=== PATIENT | male | born 1940 | race Caucasian/White ===

== ENCOUNTER 2019-12-12 23:02 | Inpatient (IN) | payer MEDICARE, SELFPAY ==
[2019-12-14 04:05] VITALS: BMI 18.6
--- NOTE | 2019-12-14 04:20 | US_ITS ---
EXAMINATION: ULTRASOUND-GUIDED THORACENTESIS CLINICAL INFORMATION: Recurrent left pleural effusion COMPARISON: Previous exam May 2019 TECHNIQUE: Procedure and risks and benefits including bleeding, infection and pneumothorax were discussed with the patient and informed consent was obtained. The left posterior lateral chest was prepped and draped in the usual sterile fashion. The skin and soft tissues were anesthetized with 1% lidocaine plain. Using ultrasound guidance and a 4 Palestinian rapid centesis catheter, access to the left pleural effusion was obtained. 350 mL of clear yellow fluid was removed. Diagnostic specimen was sent. FINDINGS: There is a moderate left pleural effusion. IMPRESSION: Ultrasound-guided left thoracentesis.
[2019-12-15] VITALS (17 sets, daily range): BP systolic 107–139; BP diastolic 56–74; PULSE 60–102; RESP 12–20; TEMP 36.2–37.2; O2SAT 91–99
[2019-12-15] MEDS: 0.9 % Sodium Chloride Flush 3 ML SYRINGE 2 ML IVFLUSH ×2 (04:51→07:57)
[2019-12-15] MEDS: Piperacillin Sodium/Tazobactam 3.375 GM in 0.9 % Sodium Chloride 50 ML IV ×3 (04:51→22:06)
[2019-12-15] MEDS: oxyCODONE HCl Immed Release 5 MG TABLET PO (04:52)
[2019-12-15 06:48] LABS: Basophils Percent Auto 0.1 % (0-2); Eosinophils Percent Auto 0.1 % (0-4); Hematocrit 33.1 % (42-52); Hemoglobin 10.3 g/dl (14.0-18.0); Imm Gran Abs Auto 0.07 X10*3/uL (0.00-0.03); Imm Gran Pct Auto 0.5 % (0.0-0.4); Lymphocytes Absolute Auto 0.5 X10*3/uL (1.2-4.9); Lymphocytes Percent Auto 3.4 % (20-40); MANUAL DIFF FLAG SCAN; Mean Corpuscular HGB Conc 31.1 g/dl (31.0-36.0); Mean Corpuscular Hemoglobin 25.9 pg (27.0-33.0); Mean Corpuscular Volume 83.2 fL (80-98); Mean Platelet Volume 10.9 fL (9.4-12.4); Monocytes Absolute Auto 0.8 X10*3/uL (0.1-1.2); Monocytes Percent Auto 5.4 % (2-11); Neutrophils Absolute Auto 12.9 X10*3/uL (2.0-8.3); Neutrophils Percent Auto 90.5 % (45-73); Platelet Count 297 X10*3/uL (160-400); Red Blood Count 3.98 X10*6/uL (4.60-5.80); Red Cell Distribution Width 14.9 % (11.0-16.0); SCAN SMEAR FLAG 1; White Blood Count 14.3 X10*3/uL (4.8-10.8)
[2019-12-15 07:04] LABS: Anion Gap 10 (12-20); Blood Urea Nitrogen 13 mg/dL (9-16); Calcium 8.1 mg/dL (8.4-10.2); Carbon Dioxide 32 mmol/L (22-29); Chloride 99 mmol/L (96-108); Estimated Glomerular Filt Rate > 60; Glucose Fasting 99 mg/dL (60-99); Potassium 3.7 mmol/l (3.3-5.1); Sodium 137 mmol/L (135-145)
[2019-12-15] MEDS: vancomycin HCL 1,000 MG in 0.9 % Sodium Chloride 250 ML 180 MG IV (07:58)
--- NOTE | 2019-12-15 08:30 | PC.NURSE ---
P: PATIENT SEEMS TO BE MAKING ABOUT 18.75 CCS URINE /HOUR I: ASSESS PATIENT, NOTIFY DR. COREY I: BLADDER SCAN E: PATIENT AROUSABLE AND ORIENTED, HAS PAIN IN HIS LOWER BACK, HIPS, LEFT REAR FLANK AROUND THORACENTESIS SITE, THE DRESSING FOR WHICH IS INTACT. NPO FOR VATS PLANNED TODAY. URINE OUTPUT SOMEWHAT LOW. BLADDER SCCANNED AT 1:30 AM FOR [address] COREY, NO NEW ORDERS AT THIS TIME.
[2019-12-15] MEDS: Gabapentin 100 MG CAPSULE PO ×2 (08:56→22:06)
--- NOTE | 2019-12-15 09:37 | PM.OP ---
Brief Operative Note Date of procedure: 12/15/19 Implants:
[2019-12-15 10:27] LABS: SLIDE REVIEW VERIFIED
--- NOTE | 2019-12-15 11:08 | HO.PM.IMPN ---
Subjective Subjective Date of Service: 12/15/19 Interval History: no new complaints Cardiovascular Cardiovascular: Reports no additional cardiovascular complaints Respiratory Respiratory: Reports no additional respiratory complaints Physical Exam Vital Signs and I&O and Narrative: Vital Signs and I&O: Vital Signs Temp 97.9 F 12/15/19 07:52 Pulse 90 12/15/19 07:52 Resp 18 12/15/19 07:52 BP 107/64 12/15/19 07:52 Pulse Ox 94 12/15/19 08:00 Intake & Output 12/14/19 12/15/19 12/15/19 18:59 06:59 18:59 Intake Total 80 / 80 320 / 320 Output Total 510 / 510 Balance -430 / -430 320 / 320 Urine Output (Aver age ml/kg/hr) 0.70 0.70 Intake: Intake, Oral [place] unt Intake, IV Amoun t 50 / 50 320 / 320 Piperacillin S odium/Tazobactam 50 / 50 50 / 50 3.375 gm In 0. 9 % Sodium Chloride 50 ml @ 100 mls/hr IV Q6H [facility] Rx#:[id number] vancomycin HCL 1,000 mg In 0.9 270 / 270 % Sodium Chlor regine 250 ml @ 180 mls/hr IV Q12H [facility] Rx#: [id number] Output: Output, Urine Am ount 510 / 510 Other: NPO Yes Urine Urinal Urine Color Straw Body Mass Index 18.6 Const: General: no acute distress and alert Orientation/consciousness: patient oriented x3 Resp: Auscultation: clear to auscultation bilaterally Cardio: Heart sounds: S1 normal heart sound present and S2 normal heart sound present GI: Palpation (GI): nontender Neuro: General: patient oriented x3 Psych: Affect: normal affect Objective Data Current Medications Generic Name Dose Route Start Last Admin Trade Name Freq PRN Reason Stop Dose Admin Acetaminophen 650 mg 12/15/19 00:00 Acetaminophen 325 Mg Tablet PO Q6H PRN fever/pain,mild (scale 1-3) Gabapentin 100 mg 12/15/19 09:00 12/15/19 08:56 Gabapentin 100 Mg Capsule PO 100 mg TID GODWIN Administration Piperacillin Sod/Tazobactam 50 mls @ 100 mls/hr 12/15/19 03:00 12/15/19 10:42 Sod 3.375 gm/ Sodium Chloride IV Infused Q6H GODWIN Infusion Ondansetron HCl 4 mg 12/15/19 00:00 Ondansetron Hcl 4 Mg/2 Ml Vial IVPUSH Q8H PRN Nausea and Vomiting Oxycodone HCl 2.5 mg 12/15/19 00:01 Oxycodone Hcl Immed Release 5 Mg Tablet PO Q4H PRN Pain, Moderate (Pain Scale 4-6 Oxycodone HCl 5 mg 12/15/19 00:00 12/15/19 04:52 Oxycodone Hcl Immed Release 5 Mg Tablet PO 5 mg Q4H PRN Administration Pain, Severe (Pain Scale 7-10) Sodium Chloride 2 ml 12/15/19 00:00 12/15/19 07:57 0.9 % Sodium Chloride Flush 3 Ml Syringe IVFLUSH 2 ml QSHIFT GODWIN Administration Labs CBC & Chem 7: 12/15/19 06:00 12/15/19 06:00 Labs: Laboratory Results - last 24 hr 12/12/19 12/12/19 12/12/19 20:06 20:06 20:06 MCV MCH MCHC RDW RDW Coeff of Eduardo Plt Count MPV Immature Gran % (Auto) Neut % (Auto) Lymph % (Auto) [place] % (Auto) Eos % (Auto) Baso % (Auto) Neut # (Auto) Lymph # (Auto) [place] # (Auto) Eos # (Auto) Baso # (Auto) Abs Immat Gran (auto) Absolute Lymphs (auto) Absolute Monos (auto) Absolute Eos (auto) Absolute Basos (auto) Absolute Nucleated RBC Nucleated RBC % (auto) Absolute Neutrophils Smear Tech's Comments PT INR APTT Hold Blue Top Bicarbonate 31 H Anion Gap 13 Estimated Creat Clear 56.9 Estim Creat Clear Calc Estimated GFR Est GFR (Non-Af Amer) > 60 Random Glucose 139 H Fasting Glucose Lactic Acid 1.3 Calcium Troponin I High Sens 12.6 Urine Color Urine Appearance Urine pH Ur Specific [place] Urine Protein Urine Glucose (UA) Urine Ketones Urine Blood Urine Nitrite Urine WBC (Auto) Urine RBC Urine WBC Ur Epithelial Cells Urine Crystals Urine Bacteria Urine Mucus Fluid Type Fluid WBC Fluid RBC Fluid Seg Neutrophils Fluid Lymphocytes Fluid Monocytes Fluid Eosinophils Fluid Basophils Fluid Other Cells Vancomycin Trough Coronavirus (PCR) Blood Type ABO Group Antibody Screen 12/12/19 12/12/19 12/12/19 20:06 20:06 23:11 MCV 82.6 MCH 25.7 L MCHC 31.2 RDW RDW Coeff of [place] 15.3 Plt Count 314 D MPV 9.4 Immature Gran % (Auto) 0.4 Neut % (Auto) 89.5 H Lymph % (Auto) 3.8 L [place] % (Auto) 6.1 Eos % (Auto) 0.0 Baso % (Auto) 0.2 Neut # (Auto) Lymph # (Auto) [place] # (Auto) Eos # (Auto) Baso # (Auto) Abs Immat Gran (auto) 0.08 H Absolute Lymphs (auto) 0.7 L Absolute Monos (auto) 1.1 Absolute Eos (auto) 0.0 Absolute Basos (auto) 0.0 Absolute Nucleated RBC 0.000 Nucleated RBC % (auto) 0.0 Absolute Neutrophils 16.5 H Smear Tech's Comments PT INR APTT Hold Blue Top SEE NOTE Bicarbonate Anion Gap Estimated Creat Clear Estim Creat Clear Calc Estimated GFR Est GFR (Non-Af Amer) Random Glucose Fasting Glucose Lactic Acid Calcium Troponin I High Sens 14.9 Urine Color Urine Appearance Urine pH Ur Specific [place] Urine Protein Urine Glucose (UA) Urine Ketones Urine Blood Urine Nitrite Urine WBC (Auto) Urine RBC Urine WBC Ur Epithelial Cells Urine Crystals Urine Bacteria Urine Mucus Fluid Type Fluid WBC Fluid RBC Fluid Seg Neutrophils Fluid Lymphocytes Fluid Monocytes Fluid Eosinophils Fluid Basophils Fluid Other Cells Vancomycin Trough Coronavirus (PCR) Blood Type ABO Group Antibody Screen 12/12/19 12/13/19 12/13/19 23:11 05:49 05:49 MCV 83.6 MCH 25.5 L MCHC 30.5 L RDW RDW Coeff of Eduardo 15.3 Plt Count 297 MPV 10.3 Immature Gran % (Auto) 0.6 H Neut % (Auto) 89.2 H Lymph % (Auto) 3.6 L [place] % (Auto) 6.4 Eos % (Auto) 0.1 Baso % (Auto) 0.1 Neut # (Auto) Lymph # (Auto) [place] # (Auto) Eos # (Auto) Baso # (Auto) Abs Immat Gran (auto) 0.12 H Absolute Lymphs (auto) 0.7 L Absolute Monos (auto) 1.3 H Absolute Eos (auto) 0.0 Absolute Basos (auto) 0.0 Absolute Nucleated RBC 0.000 Nucleated RBC % (auto) 0.0 Absolute Neutrophils 17.7 H Smear Tech's Comments PT INR APTT Hold Blue Top Bicarbonate 30 H Anion Gap 14 Estimated Creat Clear 71.1 Estim Creat Clear Calc Estimated GFR Est GFR (Non-Af Amer) > 60 Random Glucose Fasting Glucose 108 H Lactic Acid Calcium 8.6 D Troponin I High Sens Urine Color YELLOW Urine Appearance HAZY Urine pH 6.5 Ur Specific [place] 1.020 Urine Protein NEG Urine Glucose (UA) NEG Urine Ketones 5 Urine Blood 1+ H Urine Nitrite NEG Urine WBC (Auto) NEG Urine RBC 5-9 H Urine WBC 1-4 Ur Epithelial Cells 1+ Urine Crystals CA OXALATE 2+ Urine Bacteria 1+ Urine Mucus 1+ Fluid Type Fluid WBC Fluid RBC Fluid Seg Neutrophils Fluid Lymphocytes Fluid Monocytes Fluid Eosinophils Fluid Basophils Fluid Other Cells Vancomycin Trough Coronavirus (PCR) Blood Type ABO Group Antibody Screen 12/14/19 12/14/19 12/14/19 05:29 05:29 05:29 MCV 83.6 MCH 25.6 L MCHC 30.6 L RDW RDW Coeff of Eduardo 15.3 Plt Count 271 MPV 9.9 Immature Gran % (Auto) 1.1 H Neut % (Auto) 88.8 H Lymph % (Auto) 3.3 L [place] % (Auto) 6.5 Eos % (Auto) 0.1 Baso % (Auto) 0.2 Neut # (Auto) Lymph # (Auto) [place] # (Auto) Eos # (Auto) Baso # (Auto) Abs Immat Gran (auto) 0.19 H Absolute Lymphs (auto) 0.6 L Absolute Monos (auto) 1.2 Absolute Eos (auto) 0.0 Absolute Basos (auto) 0.0 Absolute Nucleated RBC 0.000 Nucleated RBC % (auto) 0.0 Absolute Neutrophils 15.9 H Smear Tech's Comments VERIFIED PT INR APTT Hold Blue Top Bicarbonate 31 H Anion Gap 13 Estimated Creat Clear 72.1 Estim Creat Clear Calc Estimated GFR Est GFR (Non-Af Amer) > 60 Random Glucose 102 Fasting Glucose Lactic Acid Calcium 8.5 Troponin I High Sens Urine Color Urine Appearance Urine pH Ur Specific [place] Urine Protein Urine Glucose (UA) Urine Ketones Urine Blood Urine Nitrite Urine WBC (Auto) Urine RBC Urine WBC Ur Epithelial Cells Urine Crystals Urine Bacteria Urine Mucus Fluid Type Fluid WBC Fluid RBC Fluid Seg Neutrophils Fluid Lymphocytes Fluid Monocytes Fluid Eosinophils Fluid Basophils Fluid Other Cells Vancomycin Trough 8.2 L Coronavirus (PCR) Blood Type ABO Group Antibody Screen 12/14/19 12/14/19 12/14/19 08:41 09:15 09:45 MCV MCH MCHC RDW RDW Coeff of Eduardo Plt Count MPV Immature Gran % (Auto) Neut % (Auto) Lymph % (Auto) [place] % (Auto) Eos % (Auto) Baso % (Auto) Neut # (Auto) Lymph # (Auto) [place] # (Auto) Eos # (Auto) Baso # (Auto) Abs Immat Gran (auto) Absolute Lymphs (auto) Absolute Monos (auto) Absolute Eos (auto) Absolute Basos (auto) Absolute Nucleated RBC Nucleated RBC % (auto) Absolute Neutrophils Smear Tech's Comments PT 17.2 H D INR 1.4 H APTT 33.4 Hold Blue Top Bicarbonate Anion Gap Estimated Creat Clear Estim Creat Clear Calc Estimated GFR Est GFR (Non-Af Amer) Random Glucose Fasting Glucose Lactic Acid Calcium Troponin I High Sens Urine Color Urine Appearance Urine pH Ur Specific [place] Urine Protein Urine Glucose (UA) Urine Ketones Urine Blood Urine Nitrite Urine WBC (Auto) Urine RBC Urine WBC Ur Epithelial Cells Urine Crystals Urine Bacteria Urine Mucus Fluid Type Fluid WBC Fluid RBC Fluid Seg Neutrophils Fluid Lymphocytes Fluid Monocytes Fluid Eosinophils Fluid Basophils Fluid Other Cells Vancomycin Trough Coronavirus (PCR) NEGATIVE Blood Type ABO Group T&S COMPLETED Antibody Screen 12/14/19 12/14/19 12/15/19 09:45 11:04 05:36 MCV 83.2 MCH 25.9 L MCHC 31.1 RDW 14.9 RDW Coeff of Eduardo Plt Count 297 MPV 10.9 Immature Gran % (Auto) 0.5 H Neut % (Auto) 90.5 H Lymph % (Auto) 3.4 L [place] % (Auto) 5.4 Eos % (Auto) 0.1 Baso % (Auto) 0.1 Neut # (Auto) 12.9 H Lymph # (Auto) 0.5 L [place] # (Auto) 0.8 Eos # (Auto) 0.0 Baso # (Auto) 0.0 Abs Immat Gran (auto) 0.07 H Absolute Lymphs (auto) Absolute Monos (auto) Absolute Eos (auto) Absolute Basos (auto) Absolute Nucleated RBC 0.000 Nucleated RBC % (auto) 0.0 Absolute Neutrophils Smear Tech's Comments VERIFIED PT INR APTT Hold Blue Top Bicarbonate Anion Gap Estimated Creat Clear Estim Creat Clear Calc Estimated GFR Est GFR (Non-Af Amer) Random Glucose Fasting Glucose Lactic Acid Calcium Troponin I High Sens Urine Color Urine Appearance Urine pH Ur Specific [place] Urine Protein Urine Glucose (UA) Urine Ketones Urine Blood Urine Nitrite Urine WBC (Auto) Urine RBC Urine WBC Ur Epithelial Cells Urine Crystals Urine Bacteria Urine Mucus Fluid Type PLEURAL Fluid WBC 0.004 Fluid RBC < 0.002 Fluid Seg Neutrophils 100 Fluid Lymphocytes 0 Fluid Monocytes 0 Fluid Eosinophils 0 Fluid Basophils 0 Fluid Other Cells 0 Vancomycin Trough Coronavirus (PCR) Blood Type A Positive ABO Group Antibody Screen NEGATIVE 12/15/19 12/15/19 12/15/19 05:36 06:00 06:00 MCV Not Rcvd MCH Not Rcvd MCHC Not Rcvd RDW RDW Coeff of Eduardo Not Rcvd Plt Count Not Rcvd MPV Not Rcvd Immature Gran % (Auto) Neut % (Auto) Lymph % (Auto) [place] % (Auto) Eos % (Auto) Baso % (Auto) Neut # (Auto) Lymph # (Auto) [place] # (Auto) Eos # (Auto) Baso # (Auto) Abs Immat Gran (auto) Absolute Lymphs (auto) Absolute Monos (auto) Absolute Eos (auto) Absolute Basos (auto) Absolute Nucleated RBC Not Rcvd Nucleated RBC % (auto) Not Rcvd Absolute Neutrophils Smear Tech's Comments PT INR APTT Hold Blue Top Bicarbonate Not Rcvd Anion Gap 10 L Not Rcvd Estimated Creat Clear Not Rcvd Estim Creat Clear Calc 79.0 Estimated GFR > 60 Est GFR (Non-Af Amer) Not Rcvd Random Glucose Fasting Glucose 99 Not Rcvd Lactic Acid Calcium 8.1 L Not Rcvd Troponin I High Sens Urine Color Urine Appearance Urine pH Ur Specific [place] Urine Protein Urine Glucose (UA) Urine Ketones Urine Blood Urine Nitrite Urine WBC (Auto) Urine RBC Urine WBC Ur Epithelial Cells Urine Crystals Urine Bacteria Urine Mucus Fluid Type Fluid WBC Fluid RBC Fluid Seg Neutrophils Fluid Lymphocytes Fluid Monocytes Fluid Eosinophils Fluid Basophils Fluid Other Cells Vancomycin Trough Coronavirus (PCR) Blood Type ABO Group Antibody Screen
[2019-12-15 11:31] LABS: Vancomycin Random 52.2 mcg/mL (15-20)
--- NOTE | 2019-12-15 13:06 | HO.ANESPROP2 ---
HPI - Anesthesia Eval Consult details Narrative: 79 M w/ empyema p/f VATS decortication PMFSH Past Medical History Medical History Arthritis Back pain Hypercholesteremia Renal cyst Social History Social History Smoking Status: Former smoker Meds Allergies Allergy/AdvReac Type Severity Reaction Status Date / Time No Known Allergies Allergy Verified 12/14/19 18:27 [No Known Allergies*] Home Medications Medication Instructions Recorded Confirmed Type gabapentin 300 mg PO TID 12/14/19 12/14/19 History pregabalin [Lyrica] 50 mg PO BID 12/14/19 12/14/19 History tramadol 50 mg PO Q6H PRN 12/14/19 12/14/19 History Exam Exam Date and Time: December 15, 2019 1306 Height,Weight and Vital Signs: Height 5 ft 11 in Weight 60.781 kg Last Vital Signs Temp 98.9 F 12/15/19 11:55 Pulse 87 12/15/19 11:55 Resp 18 12/15/19 11:55 BP 119/71 12/15/19 11:55 Pulse Ox 93 12/15/19 12:00 Pertinent Lab Results Pertinent Lab Results: Laboratory Tests 12/12/19 12/12/19 12/12/19 20:06 20:06 20:06 WBC RBC Hgb Hct MCV MCH MCHC RDW RDW Coeff of Eduardo Plt Count MPV Immature Gran % (Auto) Neut % (Auto) Lymph % (Auto) Angelina % (Auto) Eos % (Auto) Baso % (Auto) Neut # (Auto) Lymph # (Auto) Angelina # (Auto) Eos # (Auto) Baso # (Auto) Abs Immat Gran (auto) Absolute Lymphs (auto) Absolute Monos (auto) Absolute Eos (auto) Absolute Basos (auto) Absolute Nucleated RBC Nucleated RBC % (auto) Absolute Neutrophils Smear Tech's Comments PT INR APTT Hold Blue Top Sodium 134 L Potassium 4.4 Chloride 94 L Carbon Dioxide Bicarbonate 31 H Anion Gap 13 BUN 18 H Creatinine 0.85 Estimated Creat Clear 56.9 Estim Creat Clear Calc Estimated GFR Est GFR (Non-Af Amer) > 60 Random Glucose 139 H Fasting Glucose Lactic Acid 1.3 Calcium Troponin I High Sens 12.6 Urine Color Urine Appearance Urine pH Ur Specific [place] Urine Protein Urine Glucose (UA) Urine Ketones Urine Blood Urine Nitrite Urine WBC (Auto) Urine RBC Urine WBC Ur Epithelial Cells Urine Crystals Urine Bacteria Urine Mucus Fluid Type Fluid WBC Fluid RBC Fluid Seg Neutrophils Fluid Lymphocytes Fluid Monocytes Fluid Eosinophils Fluid Basophils Fluid Other Cells Vancomycin Trough Random Vancomycin Coronavirus (PCR) Blood Type ABO Group Antibody Screen 12/12/19 12/12/19 12/12/19 20:06 20:06 23:11 WBC 18.5 H RBC 4.70 Hgb 12.1 L Hct 38.8 L MCV 82.6 MCH 25.7 L MCHC 31.2 RDW RDW Coeff of Eduardo 15.3 Plt Count 314 D MPV 9.4 Immature Gran % (Auto) 0.4 Neut % (Auto) 89.5 H Lymph % (Auto) 3.8 L Angelina % (Auto) 6.1 Eos % (Auto) 0.0 Baso % (Auto) 0.2 Neut # (Auto) Lymph # (Auto) Angelina # (Auto) Eos # (Auto) Baso # (Auto) Abs Immat Gran (auto) 0.08 H Absolute Lymphs (auto) 0.7 L Absolute Monos (auto) 1.1 Absolute Eos (auto) 0.0 Absolute Basos (auto) 0.0 Absolute Nucleated RBC 0.000 Nucleated RBC % (auto) 0.0 Absolute Neutrophils 16.5 H Smear Tech's Comments PT INR APTT Hold Blue Top SEE NOTE Sodium Potassium Chloride Carbon Dioxide Bicarbonate Anion Gap BUN Creatinine Estimated Creat Clear Estim Creat Clear Calc Estimated GFR Est GFR (Non-Af Amer) Random Glucose Fasting Glucose Lactic Acid Calcium Troponin I High Sens 14.9 Urine Color Urine Appearance Urine pH Ur Specific [place] Urine Protein Urine Glucose (UA) Urine Ketones Urine Blood Urine Nitrite Urine WBC (Auto) Urine RBC Urine WBC Ur Epithelial Cells Urine Crystals Urine Bacteria Urine Mucus Fluid Type Fluid WBC Fluid RBC Fluid Seg Neutrophils Fluid Lymphocytes Fluid Monocytes Fluid Eosinophils Fluid Basophils Fluid Other Cells Vancomycin Trough Random Vancomycin Coronavirus (PCR) Blood Type ABO Group Antibody Screen 12/12/19 12/13/19 12/13/19 23:11 05:49 05:49 WBC 19.9 H RBC 4.58 L Hgb 11.7 L Hct 38.3 L MCV 83.6 MCH 25.5 L MCHC 30.5 L RDW RDW Coeff of Eduardo 15.3 Plt Count 297 MPV 10.3 Immature Gran % (Auto) 0.6 H Neut % (Auto) 89.2 H Lymph % (Auto) 3.6 L Angelina % (Auto) 6.4 Eos % (Auto) 0.1 Baso % (Auto) 0.1 Neut # (Auto) Lymph # (Auto) Angelina # (Auto) Eos # (Auto) Baso # (Auto) Abs Immat Gran (auto) 0.12 H Absolute Lymphs (auto) 0.7 L Absolute Monos (auto) 1.3 H Absolute Eos (auto) 0.0 Absolute Basos (auto) 0.0 Absolute Nucleated RBC 0.000 Nucleated RBC % (auto) 0.0 Absolute Neutrophils 17.7 H Smear Tech's Comments PT INR APTT Hold Blue Top Sodium 136 Potassium 4.7 Chloride 97 Carbon Dioxide Bicarbonate 30 H Anion Gap 14 BUN 12 Creatinine 0.70 Estimated Creat Clear 71.1 Estim Creat Clear Calc Estimated GFR Est GFR (Non-Af Amer) > 60 Random Glucose Fasting Glucose 108 H Lactic Acid Calcium 8.6 D Troponin I High Sens Urine Color YELLOW Urine Appearance HAZY Urine pH 6.5 Ur Specific [place] 1.020 Urine Protein NEG Urine Glucose (UA) NEG Urine Ketones 5 Urine Blood 1+ H Urine Nitrite NEG Urine WBC (Auto) NEG Urine RBC 5-9 H Urine WBC 1-4 Ur Epithelial Cells 1+ Urine Crystals CA OXALATE 2+ Urine Bacteria 1+ Urine Mucus 1+ Fluid Type Fluid WBC Fluid RBC Fluid Seg Neutrophils Fluid Lymphocytes Fluid Monocytes Fluid Eosinophils Fluid Basophils Fluid Other Cells Vancomycin Trough Random Vancomycin Coronavirus (PCR) Blood Type ABO Group Antibody Screen 12/14/19 12/14/19 12/14/19 05:29 05:29 05:29 WBC 18.0 H RBC 4.14 L Hgb 10.6 L Hct 34.6 L MCV 83.6 MCH 25.6 L MCHC 30.6 L RDW RDW Coeff of Eduardo 15.3 Plt Count 271 MPV 9.9 Immature Gran % (Auto) 1.1 H Neut % (Auto) 88.8 H Lymph % (Auto) 3.3 L Angelina % (Auto) 6.5 Eos % (Auto) 0.1 Baso % (Auto) 0.2 Neut # (Auto) Lymph # (Auto) Angelina # (Auto) Eos # (Auto) Baso # (Auto) Abs Immat Gran (auto) 0.19 H Absolute Lymphs (auto) 0.6 L Absolute Monos (auto) 1.2 Absolute Eos (auto) 0.0 Absolute Basos (auto) 0.0 Absolute Nucleated RBC 0.000 Nucleated RBC % (auto) 0.0 Absolute Neutrophils 15.9 H Smear Tech's Comments VERIFIED PT INR APTT Hold Blue Top Sodium 138 Potassium 4.0 Chloride 98 Carbon Dioxide Bicarbonate 31 H Anion Gap 13 BUN 12 Creatinine 0.69 Estimated Creat Clear 72.1 Estim Creat Clear Calc Estimated GFR Est GFR (Non-Af Amer) > 60 Random Glucose 102 Fasting Glucose Lactic Acid Calcium 8.5 Troponin I High Sens Urine Color Urine Appearance Urine pH Ur Specific [place] Urine Protein Urine Glucose (UA) Urine Ketones Urine Blood Urine Nitrite Urine WBC (Auto) Urine RBC Urine WBC Ur Epithelial Cells Urine Crystals Urine Bacteria Urine Mucus Fluid Type Fluid WBC Fluid RBC Fluid Seg Neutrophils Fluid Lymphocytes Fluid Monocytes Fluid Eosinophils Fluid Basophils Fluid Other Cells Vancomycin Trough 8.2 L Random Vancomycin Coronavirus (PCR) Blood Type ABO Group Antibody Screen 12/14/19 12/14/19 12/14/19 08:41 09:15 09:45 WBC RBC Hgb Hct MCV MCH MCHC RDW RDW Coeff of Eduardo Plt Count MPV Immature Gran % (Auto) Neut % (Auto) Lymph % (Auto) Angelina % (Auto) Eos % (Auto) Baso % (Auto) Neut # (Auto) Lymph # (Auto) Angelina # (Auto) Eos # (Auto) Baso # (Auto) Abs Immat Gran (auto) Absolute Lymphs (auto) Absolute Monos (auto) Absolute Eos (auto) Absolute Basos (auto) Absolute Nucleated RBC Nucleated RBC % (auto) Absolute Neutrophils Smear Tech's Comments PT 17.2 H D INR 1.4 H APTT 33.4 Hold Blue Top Sodium Potassium Chloride Carbon Dioxide Bicarbonate Anion Gap BUN Creatinine Estimated Creat Clear Estim Creat Clear Calc Estimated GFR Est GFR (Non-Af Amer) Random Glucose Fasting Glucose Lactic Acid Calcium Troponin I High Sens Urine Color Urine Appearance Urine pH Ur Specific [place] Urine Protein Urine Glucose (UA) Urine Ketones Urine Blood Urine Nitrite Urine WBC (Auto) Urine RBC Urine WBC Ur Epithelial Cells Urine Crystals Urine Bacteria Urine Mucus Fluid Type Fluid WBC Fluid RBC Fluid Seg Neutrophils Fluid Lymphocytes Fluid Monocytes Fluid Eosinophils Fluid Basophils Fluid Other Cells Vancomycin Trough Random Vancomycin Coronavirus (PCR) NEGATIVE Blood Type ABO Group T&S COMPLETED Antibody Screen 12/14/19 12/14/19 12/15/19 09:45 11:04 05:36 WBC 14.3 H RBC 3.98 L Hgb 10.3 L Hct 33.1 L MCV 83.2 MCH 25.9 L MCHC 31.1 RDW 14.9 RDW Coeff of Eduardo Plt Count 297 MPV 10.9 Immature Gran % (Auto) 0.5 H Neut % (Auto) 90.5 H Lymph % (Auto) 3.4 L Angelina % (Auto) 5.4 Eos % (Auto) 0.1 Baso % (Auto) 0.1 Neut # (Auto) 12.9 H Lymph # (Auto) 0.5 L Angelina # (Auto) 0.8 Eos # (Auto) 0.0 Baso # (Auto) 0.0 Abs Immat Gran (auto) 0.07 H Absolute Lymphs (auto) Absolute Monos (auto) Absolute Eos (auto) Absolute Basos (auto) Absolute Nucleated RBC 0.000 Nucleated RBC % (auto) 0.0 Absolute Neutrophils Smear Tech's Comments VERIFIED PT INR APTT Hold Blue Top Sodium Potassium Chloride Carbon Dioxide Bicarbonate Anion Gap BUN Creatinine Estimated Creat Clear Estim Creat Clear Calc Estimated GFR Est GFR (Non-Af Amer) Random Glucose Fasting Glucose Lactic Acid Calcium Troponin I High Sens Urine Color Urine Appearance Urine pH Ur Specific [place] Urine Protein Urine Glucose (UA) Urine Ketones Urine Blood Urine Nitrite Urine WBC (Auto) Urine RBC Urine WBC Ur Epithelial Cells Urine Crystals Urine Bacteria Urine Mucus Fluid Type PLEURAL Fluid WBC 0.004 Fluid RBC < 0.002 Fluid Seg Neutrophils 100 Fluid Lymphocytes 0 Fluid Monocytes 0 Fluid Eosinophils 0 Fluid Basophils 0 Fluid Other Cells 0 Vancomycin Trough Random Vancomycin Coronavirus (PCR) Blood Type A Positive ABO Group Antibody Screen NEGATIVE 12/15/19 12/15/19 12/15/19 05:36 06:00 06:00 WBC Not Rcvd RBC Not Rcvd Hgb Not Rcvd Hct Not Rcvd MCV Not Rcvd MCH Not Rcvd MCHC Not Rcvd RDW RDW Coeff of Eduardo Not Rcvd Plt Count Not Rcvd MPV Not Rcvd Immature Gran % (Auto) Neut % (Auto) Lymph % (Auto) Angelina % (Auto) Eos % (Auto) Baso % (Auto) Neut # (Auto) Lymph # (Auto) Angelina # (Auto) Eos # (Auto) Baso # (Auto) Abs Immat Gran (auto) Absolute Lymphs (auto) Absolute Monos (auto) Absolute Eos (auto) Absolute Basos (auto) Absolute Nucleated RBC Not Rcvd Nucleated RBC % (auto) Not Rcvd Absolute Neutrophils Smear Tech's Comments PT INR APTT Hold Blue Top Sodium 137 Not Rcvd Potassium 3.7 Not Rcvd Chloride 99 Not Rcvd Carbon Dioxide 32 H Bicarbonate Not Rcvd Anion Gap 10 L Not Rcvd BUN 13 Not Rcvd Creatinine 0.63 Not Rcvd Estimated Creat Clear Not Rcvd Estim Creat Clear Calc 79.0 Estimated GFR > 60 Est GFR (Non-Af Amer) Not Rcvd Random Glucose Fasting Glucose 99 Not Rcvd Lactic Acid Calcium 8.1 L Not Rcvd Troponin I High Sens Urine Color Urine Appearance Urine pH Ur Specific [place] Urine Protein Urine Glucose (UA) Urine Ketones Urine Blood Urine Nitrite Urine WBC (Auto) Urine RBC Urine WBC Ur Epithelial Cells Urine Crystals Urine Bacteria Urine Mucus Fluid Type Fluid WBC Fluid RBC Fluid Seg Neutrophils Fluid Lymphocytes Fluid Monocytes Fluid Eosinophils Fluid Basophils Fluid Other Cells Vancomycin Trough Random Vancomycin Coronavirus (PCR) Blood Type ABO Group Antibody Screen 12/15/19 08:56 WBC RBC Hgb Hct MCV MCH MCHC RDW RDW Coeff of Eduardo Plt Count MPV Immature Gran % (Auto) Neut % (Auto) Lymph % (Auto) Angelina % (Auto) Eos % (Auto) Baso % (Auto) Neut # (Auto) Lymph # (Auto) Angelina # (Auto) Eos # (Auto) Baso # (Auto) Abs Immat Gran (auto) Absolute Lymphs (auto) Absolute Monos (auto) Absolute Eos (auto) Absolute Basos (auto) Absolute Nucleated RBC Nucleated RBC % (auto) Absolute Neutrophils Smear Tech's Comments PT INR APTT Hold Blue Top Sodium Potassium Chloride Carbon Dioxide Bicarbonate Anion Gap BUN Creatinine Estimated Creat Clear Estim Creat Clear Calc Estimated GFR Est GFR (Non-Af Amer) Random Glucose Fasting Glucose Lactic Acid Calcium Troponin I High Sens Urine Color Urine Appearance Urine pH Ur Specific [place] Urine Protein Urine Glucose (UA) Urine Ketones Urine Blood Urine Nitrite Urine WBC (Auto) Urine RBC Urine WBC Ur Epithelial Cells Urine Crystals Urine Bacteria Urine Mucus Fluid Type Fluid WBC Fluid RBC Fluid Seg Neutrophils Fluid Lymphocytes Fluid Monocytes Fluid Eosinophils Fluid Basophils Fluid Other Cells Vancomycin Trough Random Vancomycin 52.2 H* Coronavirus (PCR) Blood Type ABO Group Antibody Screen Airway Mallampati Class: I TM Dist: >3cm Neck ROM: Full Loose/Missing/Broken Teeth: No Heart: RRR, PACs Assessment and Plan Assessment Anesthesia Assessment: Anesthesia Plan Discussed, Consent Obtained and Chart Reviewed Final Anesthetic Review NPO: Yes ASA Class: III Final Preanesthetic Review: No Changes in Pt Med Stat, Meds & Allergies Reviewed, Consent Obtained/Reviewed, Med/Surg/Anes Hx Reviewed and DNR Form (If Appl.) (DNR reversed for 24 hours) Patient Risk: High Procedure Risk: Intermediate Anesthetic Plan Anesthetic Plan: GA Disposition: Standard PACU and Inp. Admit - [facility]
[2019-12-15] MEDS: Lactated Ringers 1,000 ML 50 ML IVCONT (13:30)
--- NOTE | 2019-12-15 16:28 | PC.NURSE ---
18 FR COUDE CATHETER PLACED BY DR YIN PRIOR TO START OF PROCEDURE. 28FR STRAIGHT CHEST TUBE PLACED LEFT CHEST BUPIVICAINE 025% 40ML ADMINISTERED WITH THE ADDITION OF METHYLPREDNISOLONE 80MG/ML BY DR YIN. - JUSTIN, RN
--- NOTE | 2019-12-15 17:07 | XR_ITS ---
EXAMINATION: XR CHEST CLINICAL INFORMATION: Status post left VATS and pleurodesis and pleural biopsy COMPARISON: None TECHNIQUE: Frontal view of the chest was obtained. FINDINGS: Heart size within normal limits. A new chest tube overlying the mediastinum on the AP view is seen. A thick pleural rind is seen on the left. No pneumothorax is seen. Some barely perceptible subcutaneous emphysema is noted on the left but appearances are otherwise not significantly different when compared to yesterday's study. The right lung is clear. IMPRESSION: A new chest tube has been placed on the left overlying the mediastinum. Thick pleural rind remains. Tiny amount of subcutaneous emphysema is present.
[2019-12-16] VITALS (9 sets, daily range): BP systolic 110–138; BP diastolic 58–89; PULSE 79–92; RESP 18–20; TEMP 36.4–37; O2SAT 92–98
[2019-12-16] MEDS: Piperacillin Sodium/Tazobactam 3.375 GM in 0.9 % Sodium Chloride 50 ML IV ×4 (02:39→20:06)
--- NOTE | 2019-12-16 04:13 | OP_ITS ---
SURGEON: Alma Arevalo MD PREOPERATIVE DIAGNOSIS: POSTOPERATIVE DIAGNOSIS: PROCEDURE PERFORMED: ESTIMATED BLOOD LOSS: 15 mL. COMPLICATIONS: ANESTHESIA: ASSISTANTS: SPECIMENS: Pleural fluid, pleural biopsies, and chest wall mass. PREOPERATIVE DIAGNOSES: Left empyema, left pleural mass, left chest wall mass. POSTOPERATIVE DIAGNOSES: Left empyema, left pleural mass, left chest wall mass. PROCEDURES PERFORMED: Left VATS total decortication, pleural biopsy, excision of chest wall mass, intercostal paravertebral subpleural nerve blocks, bronchoscopy. OPERATION IN DETAIL: On the day of the operation, the patient went to the operating room, placed supine on the operating table. Anesthesia monitoring devices were placed. The patient was intubated with a double-lumen endotracheal tube. A bronchoscopy was done once the tube was in position visualizing the airways down to the subsegmental level bilaterally. There were no endobronchial lesions and no secretions. Time-out was performed confirming the correct patient, site, and procedure. The patient was then turned on his right side with the left chest up, and the left chest was widely prepped and draped in standard sterile fashion. After injection of local anesthetic, a 5 mm incision was made over the seventh intercostal space posterior axillary line and the chest was entered with some difficulty. Suction was placed into the chest, and about 500 mL of clear fluid was removed from the chest and collected in a Lukens trap. A 5 mm port and 5 mm 45-degree scope was then inserted into the chest and the chest was explored. There was significant adhesions throughout the chest what appeared to be pleural nodules and a dense pleural mass anteriorly over the fourth rib corresponding to an area outside the chest that had a palpable mass. These adhesions were taken down bluntly and the remaining fluid was suctioned out, and scope was directed posteriorly and a second incision was made, and the chest was entered under direct vision by the bedside surgical physician assistant. Finally after injection of local anesthetic, a third incision was made anteriorly away from where the mass could be appreciated and the chest was entered after injection of local anesthetic without difficulty. Using these incisions, the lung was explored further. Additional pleural rind was removed and sent for pathology, culture, fungus, AFB. At this point, multiple pleural biopsies were taken with the Asher clamp in the most suspicious area. 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 Once the pleural rind had been dealt with, we used the Pulsavac to irrigate 1 L of vancomycin and saline. We then followed that with 1 L of sterile water again with the Pulsavac device. The camera was then moved to the posteriorly. A 28-American straight chest tube was placed posteriorly and up toward the apex and secured with 0 Vicryl suture and connected to the Atrium container. One was then brought up and did not seem to appreciably move and approached the chest wall likely due to it being trapped by most likely tumor. We then directed our attention to the chest wall mass on the outside. A 3 cm incision was made over the top of it. We dissected directly onto it. It was a white-yellow fleshy mass, and this mass was excised in its entirety and sent to pathology for permanent section. The remaining incisions were closed with deep 0 Vicryl suture, followed by running 3-0 Vicryl suture, and Dermabond glue. The patient tolerated the procedure well, was extubated at the conclusion of the operation, brought to the recovery room in stable condition. TERMITE EXTERMINATOR HELPER: PARTH Cobian MD LJR/JESUS / [id number]
--- NOTE | 2019-12-16 06:00 | XR_ITS ---
EXAMINATION: XR CHEST CLINICAL INFORMATION: Postop day one L VATS pleurodesis. Pleural biopsy. Chest wall mass. COMPARISON: 12/15/2019 TECHNIQUE: Frontal view of the chest was obtained. FINDINGS: Left-sided chest tube remains in place. Persistent opacification along the periphery of the left hemithorax, similar to prior. The right lung is clear. No pneumothorax. The cardiomediastinal silhouette is unchanged. IMPRESSION: No significant change from prior. Persistent peripheral opacity of the left hemithorax. Left-sided chest tube in place.
[2019-12-16 07:05] LABS: Anion Gap 15 (12-20); Blood Urea Nitrogen 19 mg/dL (9-16); Calcium 8.5 mg/dL (8.4-10.2); Carbon Dioxide 31 mmol/L (22-29); Chloride 97 mmol/L (96-108); Creatinine Clr Calc Pharmacy 62.2; Estimated Glomerular Filt Rate > 60; Glucose Fasting 189 mg/dL (60-99); Potassium 4.7 mmol/l (3.3-5.1); Sodium 138 mmol/L (135-145)
[2019-12-16 07:07] LABS: Basophils Percent Auto 0.2 % (0-2); Hematocrit 35.6 % (42-52); Imm Gran Abs Auto 0.05 X10*3/uL (0.00-0.03); Imm Gran Pct Auto 0.4 % (0.0-0.4); Lymphocytes Absolute Auto 0.3 X10*3/uL (1.2-4.9); Lymphocytes Percent Auto 2.5 % (20-40); MANUAL DIFF FLAG SCAN; Mean Corpuscular HGB Conc 30.9 g/dl (31.0-36.0); Mean Corpuscular Hemoglobin 26.4 pg (27.0-33.0); Mean Corpuscular Volume 85.6 fL (80-98); Mean Platelet Volume 10.9 fL (9.4-12.4); Monocytes Absolute Auto 0.4 X10*3/uL (0.1-1.2); Monocytes Percent Auto 2.8 % (2-11); Neutrophils Absolute Auto 11.9 X10*3/uL (2.0-8.3); Neutrophils Percent Auto 94.1 % (45-73); Platelet Count 358 X10*3/uL (160-400); Red Blood Count 4.16 X10*6/uL (4.60-5.80); Red Cell Distribution Width 15.5 % (11.0-16.0); SCAN SMEAR FLAG 1; White Blood Count 12.7 X10*3/uL (4.8-10.8)
[2019-12-16 09:37] LABS: SLIDE REVIEW VERIFIED
[2019-12-16] MEDS: 0.9 % Sodium Chloride Flush 3 ML SYRINGE 2 ML IVFLUSH ×3 (09:53→16:10)
[2019-12-16] MEDS: Gabapentin 100 MG CAPSULE PO ×3 (09:53→20:06)
--- NOTE | 2019-12-16 10:11 | P.PNGS_ITS ---
Subjective Subjective Patient reports: no new complaints and other Interval history: Pt was seen and examined this morning, overnight was uneventful. Pt is requesting that urinary catheter be removed. States that his pain is well controlled on current medications. Physical Exam Vital Signs and I&O and Narrative: Vital Signs and I&O: Vital Signs Temp 97.5 F 12/16/19 07:23 Pulse 83 12/16/19 07:23 Resp 18 12/16/19 07:23 BP 126/72 12/16/19 07:23 Pulse Ox 98 12/16/19 07:23 Intake & Output 12/15/19 12/16/19 12/16/19 18:59 06:59 18:59 Intake Total 320 / 420 100 / 420 Output Total 200 / 730 530 / 730 Balance 120 / -310 -430 / -310 Urine Output (Aver age ml/kg/hr) 0.27 0.73 Intake: Intake, Oral Harvinder unt 0 / 0 0 / 0 Intake, IV Amoun t 320 / 420 100 / 420 Piperacillin S odium/Tazobactam 50 / 150 100 / 150 3.375 gm In 0. 9 % Sodium Chloride 50 ml @ 100 mls/hr IV Q6H GODWIN Rx#:[id number] vancomycin HCL 1,000 mg In 0.9 270 / 270 % Sodium Chlor regine 250 ml @ 180 mls/hr IV Q12H GODWIN Rx#: [id number] Lactated Ringe rs 1,000 ml @ 50 0 / 0 mls/hr IVCONT .Q20H GODWIN Rx#: [id number] Output: Output, Urine Am ount 200 / 200 Output, Urine Am ount (Catheter) 530 / 530 Coude 30 / 30 Urethral 500 / 500 Other: NPO Yes Urine Urinal Urine Color Yellow Yellow Body Mass Index 18.6 Const: General: comfortable, no acute distress, alert and awake Orientation/consciousness: patient oriented x3 HENMT: Head: Yes normal to inspection Face and sinus: Yes normal facial exam Neck: Other: No sign of subcutaneous air or crepitis Neck: Yes trachea midline Chest: Other: Left sided chest tube remain in place, set to -20 LWS, no air leak detected and no fluid output. Surgical incision remain CDI with no erythema or drainage noted. No subcu air or crepitis. Resp: Effort & Inspection: normal respiratory effort and able to speak in complete sentences Auscultation: clear to auscultation bilaterally, no rhonchi and no wheezes Cardio: Jugular venous distension: no JVD Rate: regular rate Rhythm: regular rhythm Heart sounds: S1 normal heart sound present, S2 normal heart sound present, no gallops, no murmurs and no rubs GI: Inspection: Yes normal to inspection Palpation (GI): Soft to palpation and nontender Auscultation: normal bowel sounds : Other: Mackey catheter remains in place Skin: Other: Warm and dry Neuro: General: patient oriented x3 Extrem: Right upper extremity: no edema Left upper extremity: no edema Right lower extremity: no edema Left lower extremity: no edema Progress Note: A&P Assessment and plan (1) Empyema: Status: Acute Assessment and Plan: Pt is a 79 y.o male POD#1 S/P Left VATS total decortication, pleural biopsy, excision of chest wall mass. * Chest tube remained on -20 LWS overnight with no fluid output and no air leak detected. * Chest tube to remain on -20 LWS overnight. * CXR this morning shows persistent peripheral opacity of the left hemithorax. Left-sided chest tube in good position with no pneumothorax. * CXR for tomorrow a.m. * Spoke with nursing and emphasized the need for ambulation minimum 3-4 times daily in hallway with assistance. Okay for ambulation with chest tube on water seal. * Informed RN Mackey to be removed now. * Incentive spirometry. * Continue current pain analgesics. Fall Risk Details Current Medications: Current Medications Generic Name Dose Route Start Last Admin Trade Name Freq PRN Reason Stop Dose Admin Acetaminophen 650 mg 12/15/19 00:00 Acetaminophen 325 Mg Tablet PO Q6H PRN fever/pain,mild (scale 1-3) Gabapentin 100 mg 12/15/19 09:00 12/16/19 09:53 Gabapentin 100 Mg Capsule PO 100 mg TID GODWIN Administration Piperacillin Sod/Tazobactam 50 mls @ 100 mls/hr 12/15/19 03:00 12/16/19 09:53 Sod 3.375 gm/ Sodium Chloride IV 100 mls/hr Q6H GODWIN Administration Ondansetron HCl 4 mg 12/15/19 00:00 Ondansetron Hcl 4 Mg/2 Ml Vial IVPUSH Q8H PRN Nausea and Vomiting Oxycodone HCl 2.5 mg 12/15/19 00:01 Oxycodone Hcl Immed Release 5 Mg Tablet PO Q4H PRN Pain, Moderate (Pain Scale 4-6 Oxycodone HCl 5 mg 12/15/19 00:00 12/15/19 04:52 Oxycodone Hcl Immed Release 5 Mg Tablet PO 5 mg Q4H PRN Administration Pain, Severe (Pain Scale 7-10) Sodium Chloride 2 ml 12/15/19 00:00 12/16/19 09:53 0.9 % Sodium Chloride Flush 3 Ml Syringe IVFLUSH 2 ml QSHIFT GODWIN Administration Time Spent With Patient Time: Total time spent is greater than 50% in coordination of care (as documented) at patient's floor/unit and/or counseling patient: Time with patient: 15 - 24 minutes Review of Systems Constitutional Constitutional: Denies body ache(s), Denies chills, Denies difficulty sleeping, Reports excessive sweating, Denies headache(s) and Reports poor appetite Eyes Eyes: Denies change in vision and Denies diplopia ENT Denies dysphagia and Denies headache(s) Cardiovascular Cardiovascular: Denies chest pain, Denies lightheadedness and Denies dyspnea Respiratory Respiratory: Denies chest congestion, Denies cough, Denies hemoptysis and Denies dyspnea Gastrointestinal Gastrointestinal: Denies abdominal pain, Denies dysphagia, Denies nausea and Denies vomiting Genitourinary Comments: Requesting mackey be removed Musculoskeletal Musculoskeletal: Denies myalgias, Denies muscle weakness and Denies numbness Neurologic Denies headache(s), Denies focal weakness and Denies numbness Endocrine Endocrine: Reports excessive sweating
--- NOTE | 2019-12-16 12:45 | PC.NURSE ---
Rivera catheter removed per MD at 10:30 am. Patient tolerated well. Patient due to void in 6 hours at 16:30.
--- NOTE | 2019-12-16 12:55 | HO.POSTANES ---
Post Anesthesia Evaluation Post Anesthesia Evaluation Vital Signs: Vital Signs Temp Pulse Resp BP Pulse Ox 12/16/19 11:32 97.8 F 92 18 120/58 L 95 12/16/19 08:00 95 12/16/19 07:23 97.5 F 83 18 126/72 98 12/16/19 03:38 98.6 F 92 20 110/66 92 Anesthesia: General Endotracheal-GET Mental Status: Awake Pain Control: Satisfactory Nausea/Vomiting: None Hydration: Adequate Anesthesia-Related Issues: No Anes. Related Issues
--- NOTE | 2019-12-16 13:50 | HO.PM.IMPN ---
Subjective Subjective Date of Service: 12/16/19 Interval History: Some pain on ambulation but otherwise okay Physical Exam Vital Signs and I&O and Narrative: Vital Signs and I&O: Vital Signs Temp 97.8 F 12/16/19 11:32 Pulse 92 12/16/19 11:32 Resp 18 12/16/19 11:32 BP 120/58 L 12/16/19 11:32 Pulse Ox 95 12/16/19 11:32 Intake & Output 12/15/19 12/16/19 12/16/19 18:59 06:59 18:59 Intake Total 320 / 420 100 / 420 50 / 50 Output Total 200 / 730 530 / 730 Balance 120 / -310 -430 / -310 50 / 50 Urine Output (Aver age ml/kg/hr) 0.27 0.73 0.73 Intake: Intake, Oral [place] unt 0 / 0 0 / 0 Intake, IV Amoun t 320 / 420 100 / 420 50 / 50 Piperacillin S odium/Tazobactam 50 / 150 100 / 150 50 / 50 3.375 gm In 0. 9 % Sodium Chloride 50 ml @ 100 mls/hr IV Q6H [facility] Rx#:[id number] vancomycin HCL 1,000 mg In 0.9 270 / 270 % Sodium Chlor regine 250 ml @ 180 mls/hr IV Q12H [facility] Rx#: [id number] Lactated Ringe rs 1,000 ml @ 50 0 / 0 mls/hr IVCONT .Q20H [facility] Rx#: [id number] Output: Output, Urine Am ount 200 / 200 Output, Urine Am ount (Catheter) 530 / 530 Coude 30 / 30 Urethral 500 / 500 Other: NPO Yes Urine Urinal Urine Color Yellow Yellow Body Mass Index 18.6 Const: General: comfortable, no acute distress, alert and awake Orientation/consciousness: patient oriented x3 Limitations: No language barrier HENMT: Head: Yes normal to inspection Face and sinus: Yes normal facial exam Neck: Other: No sign of subcutaneous air or crepitis Neck: Yes trachea midline Chest: Other: Left sided chest tube remain in place, set to -20 LWS, no air leak detected and no fluid output. Surgical incision remain CDI with no erythema or drainage noted. No subcu air or crepitis. Resp: Effort & Inspection: normal respiratory effort and able to speak in complete sentences Auscultation: clear to auscultation bilaterally, no rhonchi and no wheezes Cardio: Jugular venous distension: no JVD Rate: regular rate Rhythm: regular rhythm Heart sounds: S1 normal heart sound present, S2 normal heart sound present, no gallops, no murmurs and no rubs GI: Inspection: Yes normal to inspection Palpation (GI): Soft to palpation and nontender Auscultation: normal bowel sounds : Other: Rivera catheter remains in place Skin: Other: Warm and dry Neuro: General: patient oriented x3 Extrem: Right upper extremity: no edema Left upper extremity: no edema Right lower extremity: no edema Left lower extremity: no edema Psych: Affect: normal affect Objective Data Current Medications Generic Name Dose Route Start Last Admin Trade Name Freq PRN Reason Stop Dose Admin Acetaminophen 650 mg 12/15/19 00:00 Acetaminophen 325 Mg Tablet PO Q6H PRN fever/pain,mild (scale 1-3) Gabapentin 100 mg 12/15/19 09:00 12/16/19 09:53 Gabapentin 100 Mg Capsule PO 100 mg TID [facility] Administration Piperacillin Sod/Tazobactam 50 mls @ 100 mls/hr 12/15/19 03:00 12/16/19 10:38 Sod 3.375 gm/ Sodium Chloride IV Infused Q6H [facility] Infusion Ondansetron HCl 4 mg 12/15/19 00:00 Ondansetron Hcl 4 Mg/2 Ml Vial IVPUSH Q8H PRN Nausea and Vomiting Oxycodone HCl 2.5 mg 12/15/19 00:01 Oxycodone Hcl Immed Release 5 Mg Tablet PO Q4H PRN Pain, Moderate (Pain Scale 4-6 Oxycodone HCl 5 mg 12/15/19 00:00 12/15/19 04:52 Oxycodone Hcl Immed Release 5 Mg Tablet PO 5 mg Q4H PRN Administration Pain, Severe (Pain Scale 7-10) Sodium Chloride 2 ml 12/15/19 00:00 12/16/19 09:53 0.9 % Sodium Chloride Flush 3 Ml Syringe IVFLUSH 2 ml QSHIFT [facility] Administration Labs CBC & Chem 7: 12/16/19 05:30 12/16/19 05:30 Labs: Laboratory Results - last 24 hr 12/16/19 12/16/19 05:30 05:30 MCV 85.6 MCH 26.4 L MCHC 30.9 L RDW 15.5 Plt Count 358 MPV 10.9 Immature Gran % (Auto) 0.4 Neut % (Auto) 94.1 H Lymph % (Auto) 2.5 L Hardin % (Auto) 2.8 Eos % (Auto) 0.0 Baso % (Auto) 0.2 Neut # (Auto) 11.9 H Lymph # (Auto) 0.3 L [place] # (Auto) 0.4 Eos # (Auto) 0.0 Baso # (Auto) 0.0 Abs Immat Gran (auto) 0.05 H Absolute Nucleated RBC 0.000 Nucleated RBC % (auto) 0.0 Smear Tech's Comments VERIFIED Anion Gap 15 Estim Creat Clear Calc 62.2 Estimated GFR > 60 Fasting Glucose 189 H D Calcium 8.5 Microbiology Microbiology Results: Microbiology 12/15/19 15:00 Pleural Fluid Gram Stain - Preliminary 12/15/19 15:00 Pleural Fluid Routine Culture - Preliminary Culture too young to evaluate. 12/15/19 15:30 Pleura Gram Stain - Preliminary 12/15/19 15:30 Pleura Body Fluid Culture - Preliminary Culture too young to evaluate. Assessment and Plan (1) Sepsis: Status: Acute (2) Postobstructive pneumonia: Status: Acute (3) Empyema: Status: Acute Assessment and Plan: This is an 79-year-old male with past medical history as above who presented with sob to the hospital found to be septic. 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
[2019-12-16] MEDS: oxyCODONE HCl Immed Release 5 MG TABLET PO (20:05)
[2019-12-17] VITALS (7 sets, daily range): BP systolic 132–168; BP diastolic 73–86; PULSE 77–88; RESP 18–20; TEMP 36.2–36.8; O2SAT 95–96
[2019-12-17] MEDS: Piperacillin Sodium/Tazobactam 3.375 GM in 0.9 % Sodium Chloride 50 ML IV ×4 (01:59→21:04)
--- NOTE | 2019-12-17 06:00 | XR_ITS ---
EXAMINATION: XR CHEST CLINICAL INFORMATION: POD#2 status post left decortication with chest tube. COMPARISON: Portable chest 12/16/2019. TECHNIQUE: Portable AP upright view of the chest was obtained. FINDINGS: The left chest tube is slightly more inferiorly positioned in the medial mid left hemithorax. There is no change in regions of pleural thickening in the left hemithorax, most prominent superolaterally. There is no pneumothorax. There is some patchy atelectasis or consolidation in the left lower lung field, probably not significantly changed. There is a left 5th lateral rib fracture. IMPRESSION: No significant change in regions of left pleural thickening and left lower lung field patchy atelectasis or consolidation. Left lateral 5th rib fracture.
[2019-12-17 06:42] LABS: Basophils Percent Auto 0.1 % (0-2); Eosinophils Percent Auto 0.3 % (0-4); Hematocrit 36.4 % (42-52); Imm Gran Abs Auto 0.07 X10*3/uL (0.00-0.03); Imm Gran Pct Auto 0.6 % (0.0-0.4); Lymphocytes Absolute Auto 0.6 X10*3/uL (1.2-4.9); Lymphocytes Percent Auto 4.9 % (20-40); MANUAL DIFF FLAG SCAN; Mean Corpuscular HGB Conc 30.2 g/dl (31.0-36.0); Mean Corpuscular Hemoglobin 25.8 pg (27.0-33.0); Mean Corpuscular Volume 85.2 fL (80-98); Mean Platelet Volume 10.3 fL (9.4-12.4); Monocytes Absolute Auto 0.7 X10*3/uL (0.1-1.2); Neutrophils Absolute Auto 10.5 X10*3/uL (2.0-8.3); Neutrophils Percent Auto 88.1 % (45-73); Platelet Count 404 X10*3/uL (160-400); Red Blood Count 4.27 X10*6/uL (4.60-5.80); Red Cell Distribution Width 15.3 % (11.0-16.0); SCAN SMEAR FLAG 1; White Blood Count 11.9 X10*3/uL (4.8-10.8)
[2019-12-17 07:05] LABS: Anion Gap 11 (12-20); Blood Urea Nitrogen 19 mg/dL (9-16); Calcium 8.5 mg/dL (8.4-10.2); Carbon Dioxide 35 mmol/L (22-29); Chloride 101 mmol/L (96-108); Creatinine Clr Calc Pharmacy 69.1; Estimated Glomerular Filt Rate > 60; Glucose Fasting 107 mg/dL (60-99); Potassium 4.4 mmol/l (3.3-5.1); Sodium 143 mmol/L (135-145)
[2019-12-17 07:18] LABS: SLIDE REVIEW VERIFIED
[2019-12-17] MEDS: oxyCODONE HCl Immed Release 5 MG TABLET PO (08:45)
[2019-12-17] MEDS: Gabapentin 100 MG CAPSULE PO ×3 (08:45→21:05)
[2019-12-17] MEDS: 0.9 % Sodium Chloride Flush 3 ML SYRINGE 2 ML IVFLUSH ×4 (08:46→21:05)
--- NOTE | 2019-12-17 12:09 | P.PNIM_ITS ---
Subjective Subjective Date of Service: 12/17/19 Interval History: Some pain on ambulation but otherwise okay Physical Exam Vital Signs and I&O and Narrative: Vital Signs and I&O: Vital Signs Temp 97.1 F 12/17/19 11:35 Pulse 88 12/17/19 11:35 Resp 20 12/17/19 11:35 BP 132/73 12/17/19 11:35 Pulse Ox 96 12/17/19 11:35 Intake & Output 12/16/19 12/17/19 12/17/19 18:59 06:59 18:59 Intake Total 100 / 200 100 / 200 50 / 50 Output Total 0 / 650 650 / 650 Balance 100 / -450 -550 / -450 50 / 50 Urine Output (Aver age ml/kg/hr) 0.89 0.89 Intake: Intake, IV Amoun t 100 / 200 100 / 200 50 / 50 Piperacillin S odium/Tazobactam 100 / 200 100 / 200 50 / 50 3.375 gm In 0. 9 % Sodium Chloride 50 ml @ 100 mls/hr IV Q6H [facility] Rx#:[id number] Output: Output, Urine Am ount 650 / 650 Output, Chest Tu be Drainage 0 / 0 Amount Left Lateral C hest 0 / 0 Other: Breakfast % Eate n 0% Urine Urinal Urine Color Yellow Body Mass Index 18.6 Const: General: comfortable, no acute distress, alert and awake Orientation/consciousness: patient oriented x3 Limitations: No language barrier HENMT: Head: Yes normal to inspection Face and sinus: Yes normal facial exam Neck: Other: No sign of subcutaneous air or crepitis Neck: Yes trachea midline Chest: Other: chest tube in place Resp: Effort & Inspection: normal respiratory effort and able to speak in complete sentences Auscultation: clear to auscultation bilaterally, no rhonchi and no wheezes Cardio: Jugular venous distension: no JVD Rate: regular rate Rhythm: regular rhythm Heart sounds: S1 normal heart sound present, S2 normal heart sound present, no gallops, no murmurs and no rubs GI: Inspection: Yes normal to inspection Palpation (GI): Soft to palpation and nontender Auscultation: normal bowel sounds : Other: Rivera catheter remains in place Skin: Other: Warm and dry Neuro: General: patient oriented x3 Extrem: Right upper extremity: no edema Left upper extremity: no edema Right lower extremity: no edema Left lower extremity: no edema Psych: Affect: normal affect Objective Data Current Medications Generic Name Dose Route Start Last Admin Trade Name Car PRN Reason Stop Dose Admin Acetaminophen 650 mg 12/15/19 00:00 Acetaminophen 325 Mg Tablet PO Q6H PRN fever/pain,mild (scale 1-3) Gabapentin 100 mg 12/15/19 09:00 12/17/19 08:45 Gabapentin 100 Mg Capsule PO 100 mg TID [facility] Administration Piperacillin Sod/Tazobactam 50 mls @ 100 mls/hr 12/15/19 03:00 12/17/19 10:48 Sod 3.375 gm/ Sodium Chloride IV Infused Q6H [facility] Infusion Ondansetron HCl 4 mg 12/15/19 00:00 Ondansetron Hcl 4 Mg/2 Ml Vial IVPUSH Q8H PRN Nausea and Vomiting Oxycodone HCl 2.5 mg 12/15/19 00:01 Oxycodone Hcl Immed Release 5 Mg Tablet PO Q4H PRN Pain, Moderate (Pain Scale 4-6 Oxycodone HCl 5 mg 12/15/19 00:00 12/17/19 08:45 Oxycodone Hcl Immed Release 5 Mg Tablet PO 5 mg Q4H PRN Administration Pain, Severe (Pain Scale 7-10) Sodium Chloride 2 ml 12/15/19 00:00 12/17/19 08:46 0.9 % Sodium Chloride Flush 3 Ml Syringe IVFLUSH 2 ml QSHIFT [facility] Administration Labs CBC & Chem 7: 12/17/19 06:09 12/17/19 06:10 Labs: Laboratory Results - last 24 hr 12/17/19 12/17/19 06:09 06:10 MCV 85.2 MCH 25.8 L MCHC 30.2 L RDW 15.3 Plt Count 404 H MPV 10.3 Immature Gran % (Auto) 0.6 H Neut % (Auto) 88.1 H Lymph % (Auto) 4.9 L [place]ws % (Auto) 6.0 Eos % (Auto) 0.3 Baso % (Auto) 0.1 Neut # (Auto) 10.5 H Lymph # (Auto) 0.6 L [place] # (Auto) 0.7 Eos # (Auto) 0.0 Baso # (Auto) 0.0 Abs Immat Gran (auto) 0.07 H Absolute Nucleated RBC 0.000 Nucleated RBC % (auto) 0.0 Smear Tech's Comments VERIFIED Anion Gap 11 L Estim Creat Clear Calc 69.1 Estimated GFR > 60 Fasting Glucose 107 H D Calcium 8.5 Microbiology Microbiology Results: Microbiology 12/15/19 15:00 Pleural Fluid Gram Stain - Final 12/15/19 15:00 Pleural Fluid Routine Culture - Preliminary Gram positive cocci 12/15/19 15:30 Pleura Gram Stain - Preliminary 12/15/19 15:30 Pleura Body Fluid Culture - Preliminary Culture too young to evaluate. Assessment and Plan (1) Sepsis: Status: Acute (2) Postobstructive pneumonia: Status: Acute (3) Empyema: Status: Acute Assessment and Plan: This is an 79-year-old male with past medical history as above who presented wit h sob to the hospital found to be septic. 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
--- NOTE | 2019-12-17 12:36 | PM.PNGS ---
Subjective Subjective Patient reports: no new complaints Interval history: Patient states he is doing well. Chest tube remains to -20cm continuous LWS. States he has not ambulated. Poor PO intake. States his pain is well controlled with pain medication. States he has not had a bowel movement since Thursday. Would like to go home soon. Physical Exam Vital Signs and I&O and Narrative: Vital Signs and I&O: Vital Signs Temp 97.1 F 12/17/19 11:35 Pulse 88 12/17/19 11:35 Resp 20 12/17/19 11:35 BP 132/73 12/17/19 11:35 Pulse Ox 96 12/17/19 11:35 Intake & Output 12/16/19 12/17/19 12/17/19 18:59 06:59 18:59 Intake Total 100 / 200 100 / 200 50 / 50 Output Total 0 / 650 650 / 650 Balance 100 / -450 -550 / -450 50 / 50 Urine Output (Aver age ml/kg/hr) 0.89 0.89 Intake: Intake, IV Amoun t 100 / 200 100 / 200 50 / 50 Piperacillin S odium/Tazobactam 100 / 200 100 / 200 50 / 50 3.375 gm In 0. 9 % Sodium Chloride 50 ml @ 100 mls/hr IV Q6H [facility] Rx#:[id number] Output: Output, Urine Am ount 650 / 650 Output, Chest Tu be Drainage 0 / 0 Amount Left Lateral C hest 0 / 0 Other: Breakfast % Eate n 0% Urine Urinal Urine Color Yellow Body Mass Index 18.6 Const: General: cooperative, healthy appearing, comfortable and no acute distress Nutritional Appearance: well nourished Orientation/consciousness: oriented to person, oriented to place, oriented to time and patient oriented x3 Limitations: no limitations HENMT: Head: Yes normal to inspection, Yes normocephalic and Yes atraumatic Mouth: Normal oral and palatal mucosa present Eyes: Visual Mcallister: normal visual mcallister by confrontation Alignment and Position: alignment normal Periorbital: periorbital findings normal Conjunctivae: conjunctivae normal Sclerae: sclerae normal Pupils: Equal, round and reactive pupils present and Pupil accommodation reflex normal EOM: EOMs intact bilaterally Neck: Neck: Yes normal visual inspection, Yes full ROM, Yes no lymphadenopathy, Yes trachea midline, Yes supple, No lymphadenopathy, No tender and No tracheal deviation Lymphatic: no lymphadenopathy noted Chest: Chest palpation & inspection: normal inspection of the chest and no crepitus Resp: Other: Chest tube with 65cc of cecille colored drainage. No visible air leak noted on exam. No chest crepitus. Chest tube dressing is clean/dry/ intact. Multiple surgical incisions healing well without erythema, edema, or drainage. Effort & Inspection: no cough, no respiratory distress, no stridor, not tachypneic, no tracheal deviation and other (Patient speaking in full sentences on room air. Chest tube to -20cm suction) Auscultation: clear to auscultation bilaterally Cardio: Jugular venous distension: no JVD Palpation: normal PMI Rate: regular rate Rhythm: regular rhythm Heart sounds: S1 normal heart sound present, S2 normal heart sound present, no click, no gallops, no murmurs and no rubs GI: Inspection: Yes normal to inspection Auscultation: normal bowel sounds : General: Yes no CVA tenderness Back/Spine/Pelvis: Back: no CVA tenderness Thoracic/Lumbar Spine: thoracic and lumbar spine normal to inspection Skin: General skin exam: no rashes or lesions noted and dry skin Lesions: no lesions Rashes: no rashes Neuro: General: oriented to person, oriented to place, oriented to time, patient oriented x3 and gait normal Cranial nerves: Yes Equal, round and reactive pupils present Extrem: General: Yes normal to inspection, Yes full ROM, Yes capillary refill normal, Yes no clubbing, cyanosis or edema, Yes no pedal edema and Yes normal gait Psych: Appearance: grossly normal and well kempt Mental Status: mental status grossly normal Speech and movement: Normal speech and movement present and Clear speech present Affect: normal affect Attitude: cooperative Thought process: Normal thought process present Thought content: Normal thought content present Progress Note: A&P Assessment and plan (1) Empyema: Status: Acute Assessment and Plan: POD #2 s/p L VATS pleurodesis, pleural biopsy, and left chest wall excision Continue chest tube remained on -20 LWS overnight with no fluid output and no air leak detected. Chest tube to remain on -20 LWS overnight. CXR this morning shows No significant change in regions of left pleural thickening and left lower lung field patchy atelectasis or consolidation. Left lateral 5th rib fracture. Left-sided chest tube in good position with no pneumothorax. CXR for tomorrow a.m. Patient must ambulate 3-4 times daily in hallway with assistance. Okay for ambulation with chest tube on water seal. Pulmonary toileting, acapella, incentive spirometry, cough and deep breathe. Continue current pain analgesics. Constipation: stool softener regimen ordered given narcotic use and that patient hasn't had BM since Thursday Fall Risk Details Current Medications: Current Medications Generic Name Dose Route Start Last Admin Trade Name Freq PRN Reason Stop Dose Admin Acetaminophen 650 mg 12/15/19 00:00 Acetaminophen 325 Mg Tablet PO Q6H PRN fever/pain,mild (scale 1-3) Gabapentin 100 mg 12/15/19 09:00 12/17/19 08:45 Gabapentin 100 Mg Capsule PO 100 mg TID [facility] Administration Piperacillin Sod/Tazobactam 50 mls @ 100 mls/hr 12/15/19 03:00 12/17/19 10:48 Sod 3.375 gm/ Sodium Chloride IV Infused Q6H [facility] Infusion Ondansetron HCl 4 mg 12/15/19 00:00 Ondansetron Hcl 4 Mg/2 Ml Vial IVPUSH Q8H PRN Nausea and Vomiting Oxycodone HCl 2.5 mg 12/15/19 00:01 Oxycodone Hcl Immed Release 5 Mg Tablet PO Q4H PRN Pain, Moderate (Pain Scale 4-6 Oxycodone HCl 5 mg 12/15/19 00:00 12/17/19 08:45 Oxycodone Hcl Immed Release 5 Mg Tablet PO 5 mg Q4H PRN Administration Pain, Severe (Pain Scale 7-10) Sodium Chloride 2 ml 12/15/19 00:00 12/17/19 08:46 0.9 % Sodium Chloride Flush 3 Ml Syringe IVFLUSH 2 ml QSHIFT [facility] Administration Time Spent With Patient Time: Total time spent is greater than 50% in coordination of care (as documented) at patient's floor/unit and/or counseling patient: Time with patient: 15 - 24 minutes Progress Note: Quality AMI Clinical Trial Participant: No
--- NOTE | 2019-12-17 14:24 | PC.NURSE ---
CHEST TUBE TOTAL OUTPUT 70ML
[2019-12-17] MEDS: Docusate Sodium 100 MG CAPSULE PO (21:05)
[2019-12-18] VITALS (7 sets, daily range): BP systolic 130–152; BP diastolic 77–90; PULSE 81–88; RESP 16–20; TEMP 36.6–37.4; O2SAT 94–96
[2019-12-18] MEDS: Piperacillin Sodium/Tazobactam 3.375 GM in 0.9 % Sodium Chloride 50 ML IV ×4 (02:55→20:13)
[2019-12-18] MEDS: oxyCODONE HCl Immed Release 5 MG TABLET PO ×4 (03:37→20:12)
--- NOTE | 2019-12-18 06:00 | XR_ITS ---
EXAMINATION: CHEST 1 VIEW CLINICAL INFORMATION: Status post left VATS. Follow-up. COMPARISON: Multiple prior exams are reviewed. The most recent is from 12/17/2019. TECHNIQUE: An AP view of the chest is provided. FINDINGS: The cardiac silhouette is stable. The left chest tube is in unchanged position. There is stable pleural thickening and likely a small amount of pleural fluid within the left hemithorax. There is improved aeration with persistent airspace disease at the left lung base. There is mild right lower lobe atelectasis. The osseous structures are stable. IMPRESSION: Left chest tube in place. Stable pleural thickening and likely small left pleural fluid. Improved aeration at the left lung base.
[2019-12-18] MEDS: 0.9 % Sodium Chloride Flush 3 ML SYRINGE 2 ML IVFLUSH ×3 (07:35→20:21)
[2019-12-18] MEDS: Gabapentin 100 MG CAPSULE PO ×3 (07:48→20:13)
[2019-12-18] MEDS: Docusate Sodium 100 MG CAPSULE PO ×2 (07:48→20:13)
--- NOTE | 2019-12-18 10:13 | HO.PM.IMPN ---
Subjective Subjective Date of Service: 12/18/19 Interval History: No new complaints Cardiovascular Cardiovascular: Reports no additional cardiovascular complaints Respiratory Respiratory: Reports no additional respiratory complaints Physical Exam Vital Signs and I&O and Narrative: Vital Signs and I&O: Vital Signs Temp 97.8 F 12/18/19 07:47 Pulse 83 12/18/19 07:47 Resp 18 12/18/19 07:47 BP 140/90 H 12/18/19 07:47 Pulse Ox 95 12/18/19 07:47 Intake & Output 12/17/19 12/18/19 12/18/19 18:59 06:59 18:59 Intake Total 470 / 1050 580 / 1050 300 / 300 Output Total 553 / 1340 787 / 1340 350 / 350 Balance -83 / -290 -207 / -290 -50 / -50 Urine Output (Aver age ml/kg/hr) 0.75 1.03 0.48 Intake: Intake, Oral Harvinder unt 370 / 850 480 / 850 250 / 250 Intake, IV Amoun t 100 / 200 100 / 200 50 / 50 Piperacillin S odium/Tazobactam 100 / 200 100 / 200 50 / 50 3.375 gm In 0. 9 % Sodium Chloride 50 ml @ 100 mls/hr IV Q6H [facility] Rx#:[id number] Output: Output, Urine Am ount 550 / 1300 750 / 1300 350 / 350 Output, Chest Tu be Drainage 37 / 40 Amount Left Lateral C hest Other: Meal Refused Yes NPO No Breakfast % Eate n 0% 0% Lunch % Eaten 25% Urine Urinal Urinal Urinal Urine Color Yellow Yellow Body Mass Index 18.6 Const: General: cooperative, healthy appearing, comfortable, no acute distress, alert and awake Nutritional Appearance: well nourished Orientation/consciousness: oriented to person, oriented to place, oriented to time and patient oriented x3 Limitations: no limitations and No language barrier HENMT: Head: Yes normal to inspection, Yes normocephalic and Yes atraumatic Face and sinus: Yes normal facial exam Mouth: Normal oral and palatal mucosa present Eyes: Visual Mcallister: normal visual mcallister by confrontation Alignment and Position: alignment normal Periorbital: periorbital findings normal Conjunctivae: conjunctivae normal Sclerae: sclerae normal Pupils: Equal, round and reactive pupils present and Pupil accommodation reflex normal EOM: EOMs intact bilaterally Neck: Other: No sign of subcutaneous air or crepitis Neck: Yes normal visual inspection, Yes full ROM, Yes no lymphadenopathy, Yes trachea midline, Yes supple, No lymphadenopathy, No tender and No tracheal deviation Lymphatic: no lymphadenopathy noted Chest: Other: chest tube in place Chest palpation & inspection: normal inspection of the chest and no crepitus Resp: Other: Chest tube with 65cc of cecille colored drainage. No visible air leak noted on exam. No chest crepitus. Chest tube dressing is clean/dry/ intact. Multiple surgical incisions healing well without erythema, edema, or drainage. Effort & Inspection: normal respiratory effort, able to speak in complete sentences, no cough, no respiratory distress, no stridor, not tachypneic, no tracheal deviation and other (Patient speaking in full sentences on room air. Chest tube to -20cm suction) Auscultation: clear to auscultation bilaterally, no rhonchi and no wheezes Cardio: Jugular venous distension: no JVD Palpation: normal PMI Rate: regular rate Rhythm: regular rhythm Heart sounds: S1 normal heart sound present, S2 normal heart sound present, no click, no gallops, no murmurs and no rubs GI: Inspection: Yes normal to inspection Palpation (GI): Soft to palpation and nontender Auscultation: normal bowel sounds : Other: Rivera catheter remains in place General: Yes no CVA tenderness Back/Spine/Pelvis: Back: no CVA tenderness Thoracic/Lumbar Spine: thoracic and lumbar spine normal to inspection Skin: Other: Warm and dry General skin exam: no rashes or lesions noted and dry skin Lesions: no lesions Rashes: no rashes Neuro: General: oriented to person, oriented to place, oriented to time, patient oriented x3 and gait normal Cranial nerves: Yes Equal, round and reactive pupils present Extrem: General: Yes normal to inspection, Yes full ROM, Yes capillary refill normal, Yes no clubbing, cyanosis or edema, Yes no pedal edema and Yes normal gait Right upper extremity: no edema Left upper extremity: no edema Right lower extremity: no edema Left lower extremity: no edema Psych: Appearance: grossly normal and well kempt Mental Status: mental status grossly normal Speech and movement: Normal speech and movement present and Clear speech present Affect: normal affect Attitude: cooperative Thought process: Normal thought process present Thought content: Normal thought content present Objective Data Current Medications Generic Name Dose Route Start Last Admin Trade Name Freq PRN Reason Stop Dose Admin Acetaminophen 650 mg 12/15/19 00:00 Acetaminophen 325 Mg Tablet PO Q6H PRN fever/pain,mild (scale 1-3) Docusate Sodium 100 mg 12/17/19 21:00 12/18/19 07:48 Docusate Sodium 100 Mg Capsule PO 100 mg BID GODWIN Administration Gabapentin 100 mg 12/15/19 09:00 12/18/19 07:48 Gabapentin 100 Mg Capsule PO 100 mg TID GODWIN Administration Piperacillin Sod/Tazobactam 50 mls @ 100 mls/hr 12/15/19 03:00 12/18/19 08:31 Sod 3.375 gm/ Sodium Chloride IV Infused Q6H [facility] Infusion Ondansetron HCl 4 mg 12/15/19 00:00 Ondansetron Hcl 4 Mg/2 Ml Vial IVPUSH Q8H PRN Nausea and Vomiting Oxycodone HCl 2.5 mg 12/15/19 00:01 Oxycodone Hcl Immed Release 5 Mg Tablet PO Q4H PRN Pain, Moderate (Pain Scale 4-6 Oxycodone HCl 5 mg 12/15/19 00:00 12/18/19 07:41 Oxycodone Hcl Immed Release 5 Mg Tablet PO 5 mg Q4H PRN Administration Pain, Severe (Pain Scale 7-10) Polyethylene Glycol 17 gm 12/17/19 13:21 Polyethylene Glycol 3350 17 Gm Powd.Pack PO DAILY PRN Constipation Senna 7.5 ml 12/17/19 21:00 12/17/19 21:05 Senna [place] Extract Oral Syrup 15 Ml Syrup PO 7.5 ml BEDTIME GODWIN Administration Sodium Chloride 2 ml 12/15/19 00:00 12/18/19 07:35 0.9 % Sodium Chloride Flush 3 Ml Syringe IVFLUSH 2 ml QSHIFT [facility] Administration Labs CBC & Chem 7: 12/17/19 06:09 12/17/19 06:10 Microbiology Microbiology Results: Microbiology 12/15/19 15:30 Pleura Gram Stain - Final 12/15/19 15:30 Pleura Body Fluid Culture - Preliminary Gram positive cocci 12/15/19 15:00 Pleural Fluid Gram Stain - Final 12/15/19 15:00 Pleural Fluid Routine Culture - Preliminary Gram positive cocci Assessment and Plan (1) Sepsis: Status: Acute (2) Postobstructive pneumonia: Status: Acute (3) Empyema: Status: Acute Assessment and Plan: This is an 79-year-old male with past medical history as above who presented with sob to the hospital found to be septic. 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
--- NOTE | 2019-12-18 13:14 | PM.PNGS ---
Subjective Subjective Patient reports: no new complaints Interval history: Patient seen and examined this am. Doing well overall. Resting comfortably in bed on room air. Sonny tube remains to -20cm continuous LWS. Still no BM at this time. Taking stool softeners as ordered. Poor PO intake. I/S at bedside. Using appropriately. Denies fevers, chills, nausea, vomiting, or diarrhea. Physical Exam Vital Signs and I&O and Narrative: Vital Signs and I&O: Vital Signs Temp 98.2 F 12/18/19 11:29 Pulse 88 12/18/19 11:29 Resp 20 12/18/19 11:29 BP 148/77 H 12/18/19 11:29 Pulse Ox 94 12/18/19 11:29 Intake & Output 12/17/19 12/18/19 12/18/19 18:59 06:59 18:59 Intake Total 470 / 1050 580 / 1050 300 / 300 Output Total 553 / 1340 787 / 1340 600 / 600 Balance -83 / -290 -207 / -290 -300 / -300 Urine Output (Aver age ml/kg/hr) 0.75 1.03 0.82 Intake: Intake, Oral Harvinder unt 370 / 850 480 / 850 250 / 250 Intake, IV Amoun t 100 / 200 100 / 200 50 / 50 Piperacillin S odium/Tazobactam 100 / 200 100 / 200 50 / 50 3.375 gm In 0. 9 % Sodium Chloride 50 ml @ 100 mls/hr IV Q6H [facility] Rx#:[id number] Output: Output, Urine Am ount 550 / 1300 750 / 1300 600 / 600 Output, Chest Tu be Drainage 40 Amount Left Lateral C hest Other: Meal Refused Yes NPO No Breakfast % Eate n 0% 0% Lunch % Eaten 25% Urine Urinal Urinal Urinal Urine Color Yellow Yellow Yellow Body Mass Index 18.6 Const: General: cooperative, healthy appearing, comfortable and no acute distress Nutritional Appearance: well nourished Orientation/consciousness: oriented to person, oriented to place, oriented to time and patient oriented x3 Limitations: no limitations HENMT: Head: Yes normal to inspection, Yes normocephalic and Yes atraumatic Mouth: Normal oral and palatal mucosa present Eyes: Visual Mcallister: normal visual mcallister by confrontation Alignment and Position: alignment normal Periorbital: periorbital findings normal Conjunctivae: conjunctivae normal Sclerae: sclerae normal Pupils: Equal, round and reactive pupils present and Pupil accommodation reflex normal EOM: EOMs intact bilaterally Neck: Neck: Yes normal visual inspection, Yes full ROM, Yes no lymphadenopathy, Yes trachea midline, Yes supple, No lymphadenopathy, No tender and No tracheal deviation Lymphatic: no lymphadenopathy noted Chest: Chest palpation & inspection: normal inspection of the chest and no crepitus Resp: Other: Patient speaking in full sentences on room air. No SQ air palpated. Chest tube dressing is C/D/I. Left lateral chest tube remains to -20cm continuous LWS. Drained 110cc overnight of tea colored drainage. No visible air leak noted. Multiple surgical incisions healing well without erythema, edema, or drainage. Effort & Inspection: normal respiratory effort, able to speak in complete sentences, normal respiratory pattern, no audible wheezes, no cough, no pursed lip breathing, no respiratory distress, no stridor, not tachypneic, no tracheal deviation and other (Patient speaking in full sentences on room air. Chest tube to *waterseal/herr) Auscultation: clear to auscultation bilaterally Cardio: Jugular venous distension: no JVD Palpation: normal PMI Rate: regular rate Rhythm: regular rhythm Heart sounds: S1 normal heart sound present, S2 normal heart sound present, no click, no gallops, no murmurs and no rubs GI: Inspection: Yes normal to inspection Auscultation: normal bowel sounds : General: Yes no CVA tenderness Back/Spine/Pelvis: Back: no CVA tenderness Thoracic/Lumbar Spine: thoracic and lumbar spine normal to inspection Skin: General skin exam: no rashes or lesions noted and dry skin Lesions: no lesions Rashes: no rashes Neuro: General: oriented to person, oriented to place, oriented to time, patient oriented x3 and gait normal Cranial nerves: Yes Equal, round and reactive pupils present Extrem: General: Yes normal to inspection, Yes full ROM, Yes capillary refill normal, Yes no clubbing, cyanosis or edema, Yes no pedal edema and Yes normal gait Psych: Appearance: grossly normal and well kempt Mental Status: mental status grossly normal Speech and movement: Normal speech and movement present and Clear speech present Affect: normal affect Attitude: cooperative Thought process: Normal thought process present Thought content: Normal thought content present Progress Note: A&P Assessment and plan (1) Empyema: Status: Acute Assessment and Plan: POD #3 s/p L VATS pleurodesis, pleural biopsy, and left chest wall excision Chest tube currently to -20 LWS overnight. No air leak detected. Nursing to place chest tube to waterseal at midnight. If patient tolerates this well, will most likely d/c chest tube tomorrow am. CXR this morning shows stable pleural thickening and likely small left pleural fluid. Improved aeration at the left lung base. CXR for tomorrow a.m. Patient must ambulate 3-4 times daily in hallway with assistance. Okay for ambulation with chest tube on water seal. Pulmonary toileting, acapella, incentive spirometry, cough and deep breathe. Continue current pain analgesics. Constipation: continue with stool softener regimen given narcotic use Final pathology still pending. Micro of pleura fluid shows gram + cocci. Last WBC trending down on 12/17/2019. Patient remains afebrile and vitals remain stable. Patient will need to follow-up with Dr. Alma Arevalo in the [facility] Thoracic Surgery office to discuss pathology report in two weeks. Fall Risk Details Current Medications: Current Medications Generic Name Dose Route Start Last Admin Trade Name Freq PRN Reason Stop Dose Admin Acetaminophen 650 mg 12/15/19 00:00 Acetaminophen 325 Mg Tablet PO Q6H PRN fever/pain,mild (scale 1-3) Docusate Sodium 100 mg 12/17/19 21:00 12/18/19 07:48 Docusate Sodium 100 Mg Capsule PO 100 mg BID GODWIN Administration Gabapentin 100 mg 12/15/19 09:00 12/18/19 07:48 Gabapentin 100 Mg Capsule PO 100 mg TID GODWIN Administration Piperacillin Sod/Tazobactam 50 mls @ 100 mls/hr 12/15/19 03:00 12/18/19 08:31 Sod 3.375 gm/ Sodium Chloride IV Infused Q6H [facility] Infusion Ondansetron HCl 4 mg 12/15/19 00:00 Ondansetron Hcl 4 Mg/2 Ml Vial IVPUSH Q8H PRN Nausea and Vomiting Oxycodone HCl 2.5 mg 12/15/19 00:01 Oxycodone Hcl Immed Release 5 Mg Tablet PO Q4H PRN Pain, Moderate (Pain Scale 4-6 Oxycodone HCl 5 mg 12/15/19 00:00 12/18/19 12:36 Oxycodone Hcl Immed Release 5 Mg Tablet PO 5 mg Q4H PRN Administration Pain, Severe (Pain Scale 7-10) Polyethylene Glycol 17 gm 12/17/19 13:21 Polyethylene Glycol 3350 17 Gm Powd.Pack PO DAILY PRN Constipation Senna 7.5 ml 12/17/19 21:00 12/17/19 21:05 Senna [place] Extract Oral Syrup 15 Ml Syrup PO 7.5 ml BEDTIME [facility] Administration Sodium Chloride 2 ml 12/15/19 00:00 12/18/19 07:35 0.9 % Sodium Chloride Flush 3 Ml Syringe IVFLUSH 2 ml QSHIFT [facility] Administration Time Spent With Patient Time: Total time spent is greater than 50% in coordination of care (as documented) at patient's floor/unit and/or counseling patient: Time with patient: 15 - 24 minutes Progress Note: Quality AMI Clinical Trial Participant: No
[2019-12-19] MEDS: Piperacillin Sodium/Tazobactam 3.375 GM in 0.9 % Sodium Chloride 50 ML IV ×2 (02:23→08:39)
[2019-12-19 03:56] VITALS: BP 125/80; PULSE 77; RESP 16; TEMP 36.7; O2SAT 94
[2019-12-19 04:00] VITALS: PULSE 79
[2019-12-19] MEDS: oxyCODONE HCl Immed Release 5 MG TABLET PO ×2 (04:11→08:41)
--- NOTE | 2019-12-19 06:00 | XR_ITS ---
EXAMINATION: XR CHEST CLINICAL INFORMATION: Status post left VATS, follow-up. COMPARISON: Multiple previous studies dating back to 12/15/2019, the most recent which is 12/18/2019. TECHNIQUE: Frontal view of the chest was obtained. FINDINGS: Support devices: A left-sided chest tube is again seen in place without interval change with tip terminating medially in the mid to upper chest. Moderate pleural thickening is again seen laterally in the left chest with blunting of the left costophrenic angle as well as extension superior to the left apex without significant interval change. There is no pneumothorax. The right lung is clear. Mild cardiomediastinal shift to the left is again seen without significant change. A nondisplaced left lateral left fifth rib fractures again noted. IMPRESSION: No significant interval change.
[2019-12-19 06:21] LABS: Basophils Percent Auto 0.1 % (0-2); Eosinophils Absolute Auto 0.1 X10*3/uL (0.0-0.4); Eosinophils Percent Auto 0.9 % (0-4); Hematocrit 35.6 % (42-52); Hemoglobin 10.9 g/dl (14.0-18.0); Lymphocytes Absolute Auto 0.6 X10*3/uL (1.2-4.9); Lymphocytes Percent Auto 6.6 % (20-40); MANUAL DIFF FLAG SCAN; Mean Corpuscular HGB Conc 30.6 g/dl (31.0-36.0); Mean Corpuscular Hemoglobin 25.6 pg (27.0-33.0); Mean Corpuscular Volume 83.8 fL (80-98); Mean Platelet Volume 10.3 fL (9.4-12.4); Monocytes Absolute Auto 0.6 X10*3/uL (0.1-1.2); Monocytes Percent Auto 5.7 % (2-11); Neutrophils Absolute Auto 8.3 X10*3/uL (2.0-8.3); Neutrophils Percent Auto 85.7 % (45-73); Platelet Count 475 X10*3/uL (160-400); Red Blood Count 4.25 X10*6/uL (4.60-5.80); Red Cell Distribution Width 15.3 % (11.0-16.0); SCAN SMEAR FLAG 1; White Blood Count 9.7 X10*3/uL (4.8-10.8)
[2019-12-19 06:50] LABS: Anion Gap 11 (12-20); Blood Urea Nitrogen 14 mg/dL (9-16); Calcium 8.4 mg/dL (8.4-10.2); Carbon Dioxide 32 mmol/L (22-29); Chloride 101 mmol/L (96-108); Creatinine Clr Calc Pharmacy 71.1; Estimated Glomerular Filt Rate > 60; Glucose Fasting 98 mg/dL (60-99); Potassium 4.1 mmol/l (3.3-5.1); Sodium 140 mmol/L (135-145)
[2019-12-19 06:51] LABS: SLIDE REVIEW VERIFIED
[2019-12-19 07:47] VITALS: BP 141/75; PULSE 79; RESP 20; TEMP 36.5; O2SAT 95
[2019-12-19] MEDS: Gabapentin 100 MG CAPSULE PO (08:40)
[2019-12-19] MEDS: Docusate Sodium 100 MG CAPSULE PO (08:41)
[2019-12-19] MEDS: 0.9 % Sodium Chloride Flush 3 ML SYRINGE 2 ML IVFLUSH (08:41)
--- NOTE | 2019-12-19 09:21 | P.PNGS_ITS ---
Subjective Subjective Patient reports: other (Patient was seen and examined his morning.Patient's overnight was overall uneventful. Patient continues to have some mild pain surrounding incisional sites. Denies fever, chills, malaise and states he ambulated in the hallway frequently yesterday. Appetite remains good, denies difficulty with uri) Physical Exam Vital Signs and I&O and Narrative: Vital Signs and I&O: Vital Signs Temp 97.7 F 12/19/19 07:47 Pulse 79 12/19/19 07:47 Resp 20 12/19/19 07:47 BP 141/75 H 12/19/19 07:47 Pulse Ox 95 12/19/19 07:47 Intake & Output 12/18/19 12/19/19 12/19/19 18:59 06:59 18:59 Intake Total 350 / 810 460 / 810 50 / 50 Output Total 1510 / 2110 600 / 2110 Balance -1160 / -1300 -140 / -1300 50 / 50 Urine Output (Aver age ml/kg/hr) 1.99 0.82 0.82 Intake: Intake, Oral Harvinder unt 250 / 610 360 / 610 Intake, IV Amoun t 100 / 200 100 / 200 50 / 50 Piperacillin S odium/Tazobactam 100 / 200 100 / 200 50 / 50 3.375 gm In 0. 9 % Sodium Chloride 50 ml @ 100 mls/hr IV Q6H [facility] Rx#:[id number] Output: Output, Urine Am ount 1450 / 2050 600 / 2050 Output, Chest Tu be Drainage 60 / 60 Amount Left Lateral C hest 60 / 60 Other: Meal Refused Yes NPO No Breakfast % Eate n 0% Lunch % Eaten 50% Dinner % Eaten 50% Urine Urinal Urinal Urine Color Yellow Concentrated Body Mass Index 18.6 Const: General: comfortable, no acute distress, alert and awake Nutritional Appearance: well nourished Orientation/consciousness: patient oriented x3 Limitations: no limitations and No language barrier HENMT: Head: Yes normocephalic Face and sinus: Yes normal facial exam Mouth: Normal oral and palatal mucosa present Eyes: General: appearance normal, both eyes and all related structures Visual Mcallister: normal visual mcallister by confrontation Alignment and Position: alignment normal Periorbital: periorbital findings normal Conjunctivae: conjunctivae normal Sclerae: sclerae normal Pupils: Equal, round and reactive pupils present EOM: EOMs intact bilaterally Neck: Other: Trachea midline with no subcutaneous sir or crepitus. Neck: Yes normal visual inspection, Yes full ROM, Yes no lymphadenopathy, Yes trachea midline, Yes supple, No lymphadenopathy, No tender and No tracheal deviation Lymphatic: no lymphadenopathy noted Chest: Other: Left sided chest tube remains in place with dressing CDI. Chest tube remained on water seal overnight with 60 cc of serous sanguineous output. Surgical incisions remain intact with no evidence of wound dehiscence, erthymema or drainage. No subcu air along chest wall. Chest palpation & inspection: normal inspection of the chest and no crepitus Resp: Effort & Inspection: normal respiratory effort and uses accessory muscles Auscultation: clear to auscultation bilaterally, no rhonchi and no wheezes Cardio: Jugular venous distension: JVD present Palpation: normal PMI Rate: regular rate Rhythm: regular rhythm Heart sounds: S1 normal heart sound present, S2 normal heart sound present, no gallops, no murmurs and no rubs GI: Inspection: Yes normal to inspection Palpation (GI): Soft to palpation and nontender Auscultation: normal bowel sounds : Other: Rivera catheter remains in place General: Yes no CVA tenderness Back/Spine/Pelvis: Back: no CVA tenderness Thoracic/Lumbar Spine: thoracic and lumbar spine normal to inspection Skin: Other: Warm and dry General skin exam: no rashes or lesions noted and dry skin Lesions: no lesions Rashes: no rashes Neuro: General: patient oriented x3 and moves all extremities Cranial nerves: Yes Equal, round and reactive pupils present Extrem: General: Yes normal to inspection Right upper extremity: no edema Left upper extremity: no edema Right lower extremity: no edema Left lower extremity: no edema Psych: Appearance: grossly normal Mental Status: mental status grossly normal Speech and movement: Clear speech present Affect: normal affect Attitude: cooperative Thought process: Normal thought process present Thought content: Normal thought content present Progress Note: A&P Assessment and plan (1) Empyema: Status: Acute Assessment and Plan: POD #3 s/p L VATS pleurodesis, pleural biopsy, and left chest wall excision * chest tube remained on water seal overnight with 60 cc of serous sanguineous fluid output overnight, and no air leak detected. * Left sided chest tube removed this morning without incident and a dry occlusive dressing placed. * CXR this morning shows No significant change in regions of left pleural thickening and left lower lung field patchy atelectasis or consolidation with no pneumothorax present. * Pleural fluid present for gram+ cocci, would recomend to continue with abx upon discharge. * Pulmonary toileting, acapella, incentive spirometry, cough and deep breathe. * Continue current pain analgesics. * Constipation: stool softener regimen ordered given narcotic use and that patient hasn't had BM since last Thursday. Post op instructions. ACTIVITY: - You should be out of bed and walking at least 3x per day. - No lifting anything heavier than 10lb x 2 weeks (ie, gallon of milk). - Continue to use the incentive spirometer at least 10x per day to aide with keeping the lungs expanded. INCISION CARE: -You may remove the dressing on the left side of chest on Thursday12/21/2019. -Once the dressing is removed you may leave this area open to air and you may shower. Sponge bathe only until dressing is removed. - You may shower, starting 12/21/19. - Keep all incisions clean and dry. - Gently wash incisions with soap and water. No scrubbing the areas. - No tub baths, swimming, etc. for the next 2-4 weeks. MEDICATION: - Take all medications as directed. - No driving when taking narcotic pain medication. - You should be taking a stool softener when taking narcotic pain medications in order to prevent severe constipation. WATCH FOR: - Monitor all incisions for increased redness, swelling, open areas, or drainage. - Monitor for increased air under the skin around the incisions or chest (feels like Rice Krispy cereal when touched). - Monitor for fever, chills, shortness of breath, chest pain, severe abdominal pain, persistent nausea/vomiting, severe changes in bowel or bladder habits. FOLLOWUP: -You have an appointment with Dr. Arevalo at the [place] [facility] office on 01/06/20 @ 10 a.m for a followup. [address] [facility] - Call the thoracic surgery office to schedule a followup appointment for 2 weeks. - Arrive 30 minutes prior to your appointment to have a chest xray done at [facility]. Go to Patient Registration to check in for the xray. - If you have any questions or concerns please call the thoracic surgery office @ . Fall Risk Details Current Medications: Current Medications Generic Name Dose Route Start Last Admin Trade Name Freq PRN Reason Stop Dose Admin Acetaminophen 650 mg 12/15/19 00:00 Acetaminophen 325 Mg Tablet PO Q6H PRN fever/pain,mild (scale 1-3) Docusate Sodium 100 mg 12/17/19 21:00 12/19/19 08:41 Docusate Sodium 100 Mg Capsule PO 100 mg BID GODWIN Administration Gabapentin 100 mg 12/15/19 09:00 12/19/19 08:40 Gabapentin 100 Mg Capsule PO 100 mg TID GODWIN Administration Ceftriaxone Sodium 1 gm/ 50 mls @ 100 mls/hr 12/19/19 09:15 Sodium Chloride IV Q24H [facility]WIN Ondansetron HCl 4 mg 12/15/19 00:00 Ondansetron Hcl 4 Mg/2 Ml Vial IVPUSH Q8H PRN Nausea and Vomiting Oxycodone HCl 2.5 mg 12/15/19 00:01 Oxycodone Hcl Immed Release 5 Mg Tablet PO Q4H PRN Pain, Moderate (Pain Scale 4-6 Oxycodone HCl 5 mg 12/15/19 00:00 12/19/19 08:41 Oxycodone Hcl Immed Release 5 Mg Tablet PO 5 mg Q4H PRN Administration Pain, Severe (Pain Scale 7-10) Polyethylene Glycol 17 gm 12/17/19 13:21 Polyethylene Glycol 3350 17 Gm Powd.Pack PO DAILY PRN Constipation Senna 7.5 ml 12/17/19 21:00 12/18/19 20:21 Senna [place] Extract Oral Syrup 15 Ml Syrup PO Not Given BEDTIME GODWIN Sodium Chloride 2 ml 12/15/19 00:00 12/19/19 08:41 0.9 % Sodium Chloride Flush 3 Ml Syringe IVFLUSH 2 ml QSHIFT [facility] Administration Time Spent With Patient Time: Total time spent is greater than 50% in coordination of care (as documented) at patient's floor/unit and/or counseling patient: Time with patient: less than 15 minutes Progress Note: Quality AMI Clinical Trial Participant: No
[2019-12-19] MEDS: cefTRIAXone sodium 1 GM in 0.9 % Sodium Chloride 50 ML IV (09:26)
--- NOTE | 2019-12-19 11:47 | P.DS_ITS ---
DS: Providers Provider Date of admission: 12/12/19 23:02 Primary care physician: Unknown Physician Consults: 12/14/19 04:15 Consult to Thoracic Surgery Routine Consulting Provider: Maurisio Martinez 12/14/19 04:16 Consult to Hematology / Oncology Routine Consulting Provider: Kassie Aquino Reason for consultation: lung malignancy 12/14/19 04:17 Consult to Pulmonology Routine Consulting Provider: Satish Nicolas Reason for consultation: Known to you. Empyema? DS: Diagnosis Discharge Diagnosis (1) Empyema: Status: Acute (2) Sepsis: Status: Acute (3) Postobstructive pneumonia: Status: Acute DS: Summary Hospital Course Hospital Course: Patient was admitted for sepsis secondary to postobstructive pneumonia and empyema. He underwent thoracentesis which showed strep mitis. Patient received several days of Zosyn sepsis resolved. He will be discharged home on 10 more days of p.o. Augmentin. Patient also underwent vats procedure. Preliminary biopsy showing possible malignancy, patient should follow-up final pathology. he should follow up with thoracic and oncology Time Spent with Patient Time attestation: Total time spent providing and/or coordinating discharge services: Quality: AMI Clinical Trial Participant: No Physical Exam Vital Signs and I&O and Narrative: Vital Signs and I&O: Vital Signs Temp 97.7 F 12/19/19 07:47 Pulse 79 12/19/19 07:47 Resp 20 12/19/19 07:47 BP 141/75 H 12/19/19 07:47 Pulse Ox 95 12/19/19 07:47 Intake & Output 12/18/19 12/19/19 12/19/19 18:59 06:59 18:59 Intake Total 350 / 810 460 / 810 100 / 100 Output Total 1510 / 2110 600 / 2110 Balance -1160 / -1300 -140 / -1300 100 / 100 Urine Output (Aver age ml/kg/hr) 1.99 0.82 0.82 Intake: Intake, Oral [place] unt 250 / 610 360 / 610 Intake, IV Amoun t 100 / 200 100 / 200 100 / 100 Piperacillin S odium/Tazobactam 100 / 200 100 / 200 50 / 50 3.375 gm In 0. 9 % Sodium Chloride 50 ml @ 100 mls/hr IV Q6H [facility] Rx#:[id number] cefTRIAXone so dium 1 gm In 0.9 50 / 50 % Sodium Chlor regine 50 ml @ 100 mls/hr IV Q24H [facility] Rx#: [id number] Output: Output, Urine Am ount 1450 / 2050 600 / 2050 Output, Chest Tu be Drainage 60 / 60 Amount Left Lateral C hest 60 / 60 Other: Meal Refused Yes NPO No Breakfast % Eate n 0% Lunch % Eaten 50% Dinner % Eaten 50% Urine Urinal Urinal Urine Color Yellow Concentrated Body Mass Index 18.6 General: AO X 3, no acute distress Resp: CTA bilateral CVS: S1,S2,RRR GI: soft, non tender, non distended Neuro: motor grossly intact Psych: appropriate affect DS: Data Data Completed and Pending Labs on day of discharge: Labs from last 24 hours 12/19/19 12/19/19 05:26 05:26 WBC 9.7 RBC 4.25 L Hgb 10.9 L Hct 35.6 L MCV 83.8 MCH 25.6 L MCHC 30.6 L RDW 15.3 Plt Count 475 H MPV 10.3 Immature Gran % (Auto) 1.0 H Neut % (Auto) 85.7 H Lymph % (Auto) 6.6 L Randolph % (Auto) 5.7 Eos % (Auto) 0.9 Baso % (Auto) 0.1 Neut # (Auto) 8.3 Lymph # (Auto) 0.6 L Randolph # (Auto) 0.6 Eos # (Auto) 0.1 Baso # (Auto) 0.0 Abs Immat Gran (auto) 0.10 H Absolute Nucleated RBC 0.000 Nucleated RBC % (auto) 0.0 Smear Tech's Comments VERIFIED Sodium 140 Potassium 4.1 Chloride 101 Carbon Dioxide 32 H Anion Gap 11 L BUN 14 Creatinine 0.70 Estim Creat Clear Calc 71.1 Estimated GFR > 60 Fasting Glucose 98 Calcium 8.4 Discharge Plan Discharge Patient Disposition: Home Health Service Referrals: Maurisio Martinez PA [Physician Certified Residential Medication Aide] - 2 Weeks Physician,Unknown [Primary Care Provider] - Discharge Medications: New amoxicillin-pot clavulanate [Augmentin] 875-125 mg tablet 1 tab PO Q12H Qty: 20 RF: 0 Continued tramadol 50 mg Tablet 50 mg PO Q6H PRN (Reason: Pain) RF: 0 gabapentin 300 mg Capsule 300 mg PO TID RF: 0 pregabalin [Lyrica] 50 mg Capsule 50 mg PO BID RF: 0 Discharge Orders: Discharge Order (Routine); Ordered 12/19/19 Ordered By: Troy Wilkerson Diet: advance to your usual diet Activity on Discharge: As tolerated Visit Report Forms: Patient Portal Discharge page Care Plan Goals: recovery Health Concerns: pneumonia Plan of Treatment: 10 days augmentin
--- NOTE | 2019-12-19 11:59 | P.F2F_ITS ---
Service Date Service Date: 12/19/19 Reasons for Services MD overseeing care: unknown Homebound: Leaving the home is medically contraindicated at this time without the asist of a device and/or another person due th the listed conditions above and below. Certification: Based on the above findings, I certify that this patient is confined to the home and needs intermittent detention care, physical therapy and/or speech therapy, or continues to need occupational therapy. The patient is under my care, and I have initiated the establishment of the plan of care. The patient will be followed by a physician who will periodically review the plan of care.
[2019-12-19 12:00] VITALS: BP 125/71; PULSE 84; RESP 18; TEMP 36.4; O2SAT 95
--- NOTE | 2019-12-19 14:33 | MHC.INPTTRAN ---
Follow up with Dr Arevalo. [facility]. Appt scheduled 01/06/20 at 10am Keep back dsg dry. May remove on . and leave open to air. Do not shower until dsg is off. No lifting < 10lbs. Use Incentive spir at home. No bath for 2 weeks.
== END 2019-12-19 16:25 | disposition home health service (06) | DRG 853 ==
PROVIDERS: Surgery; Admitting Provider Internal Medicine; Emergency Provider Nurse Practitioner Family; Visit Provider Internal Medicine
PROC: 0BNL4ZZ Release Left Lung, Percutaneous Endoscopic Approach (ICD-10-PCS; principal; 2019-12-15 13:30)
DX: A41.9 Sepsis, unspecified organism (principal); J96.01 Acute respiratory failure with hypoxia; G92 Toxic encephalopathy; J18.8 Other pneumonia, unspecified organism; J86.9 Pyothorax without fistula; C34.12 Malignant neoplasm of upper lobe, left bronchus or lung; J91.8 Pleural effusion in other conditions classified elsewhere; E78.00 Pure hypercholesterolemia, unspecified; Z20.828 Contact with and (suspected) exposure to other viral communicable diseases; G89.29 Other chronic pain; M54.9 Dorsalgia, unspecified; B95.4 Other streptococcus as the cause of diseases classified elsewhere; R22.2 Localized swelling, mass and lump, trunk; Z79.891 Long term (current) use of opiate analgesic; Z79.899 Other long term (current) drug therapy; Z66 Do not resuscitate
CPT/HCPCS: 32555; 36415; 70450; 71045; 71250; 80048; 80051; 80202; 81001; 82150; 82565; 82945; 82947; 83605; 83615; 83986; 84157; 84484; 84520; 85025; 85610; 85730; 86850; 86900; 86901; 87040; 87070; 87071; 87077; 87102; 87116; 87186; 87205; 87640; 87641; 88112; 88161; 88305; 88331; 88341; 88342; 88360; 89051; 93005; 96361; 96365; 96367; 99212; 99232; 99285; J0696; J1040; J1100; J1170; J1650; J2250; J2370; J2405; J2543; J3010; J3370; U0003